=== PATIENT | female | born 1960 | race Caucasian/White ===

== ENCOUNTER 2021-08-16 10:21 | Inpatient (IN) | payer MEDICARE ==
[2021-08-16 11:26] LABS: ALT (SGPT) 17 U/L (8-55); AST (SGOT) 47 U/L (5-34); Albumin 3.4 g/dL (3.5-5.0); Alkaline Phosphatase 106 U/L (40-110); Anion Gap 15 mmol/L (10-20); BUN (Urea Nitrogen) 22 mg/dL (9.8-20.1); Bilirubin, Total 1.4 mg/dL (0.2-1.2); Calc. Creatinine Clearance 0 mL/min (70-130); Calcium 9.7 mg/dL (7.8-10.44); Carbon Dioxide 25 mmol/L (22-29); Chloride 93 mmol/L (98-107); Globulin 5.2 g/dL (2.4-3.5); Glucose 187 mg/dL (70-105); Potassium 4.2 mmol/L (3.5-5.1); Protein, Total 8.6 g/dL (6.0-8.3); Sodium 129 mmol/L (136-145)
[2021-08-16 11:34] LABS: #Eosinphils 0.1 thou/uL (0.0-0.7); #Lymphocytes 1.2 thou/uL (1.20-3.40); #Monocytes 0.6 thou/uL (0.11-0.59); #Neutrophils 2.3 thou/uL (1.40-6.50); %Basophils 0.2 % (0.0-1.0); %Eosinophils 2.1 % (0.0-10.0); %Lymphocytes 29.6 % (21.0-51.0); %Monocytes 13.5 % (0.0-10.0); %Neutrophils 54.5 % (42.0-75.0); Hemoglobin 12.3 g/dL (12.0-16.0); MDiff Complete? YES; Mean Corpuscular HGB CONC 31.1 g/dL (32.0-36.0); Mean Corpuscular Hemoglobin 28.5 pg (27.0-31.0); Mean Corpuscular Volume 91.5 fL (78.0-98.0); Mean Platelet Volume 9.7 fL (7.4-10.4); Platelet Count 86 thou/uL (130-400); Platelet Morphology Comment Appears Decreased; Polychromasia SLIGHT = 2-3 cells (100X) (0-2/hpf); RBC Distribution Width 15.8 % (11.5-14.5); Red Blood Cell (RBC) Count 4.33 mill/uL (4.20-5.40); White Blood Cell (WBC) Count 4.2 thou/uL (4.8-10.8)
[2021-08-16 13:29] LABS: Bacteria/HPF 3+ HPF (None Seen); Bilirubin Negative (Negative); Blood, Urine 2+ (Negative); Clarity Turbid (Clear); Glucose, Urine (Dipstick) Normal (Negative); Ketone, Urine Negative (Negative); Leukocyte Negative Leu/uL (Negative); Nitrite Negative (Negative); Protein, Urine (Dipstick) 200 mg/dL (Neg-Trace); Specific Gravity, Urine 1.018 (1.002-1.036); Squamous Epithelial 0-3 HPF (0-3); WBC/HPF 21-50 HPF (0-3); pH, Urine 6.5 (5.0-9.0)
[2021-08-16] MEDS ORDERED: Ondansetron ODT 4 MG TAB PO PRN (14:05)
[2021-08-16] MEDS ORDERED: HumaLOG 300 UNITS/3 ML VIAL SC PRN (14:05)
[2021-08-16] MEDS ORDERED: Dextrose 50% Abboject 50 ML SYRINGE SLOW IVP PRN (14:05)
[2021-08-16] MEDS ORDERED: hydrALAZINE 20 MG/ML VIAL SLOW IVP PRN (14:05)
[2021-08-16] MEDS ORDERED: Acetaminophen 325 MG TAB PO PRN (14:05)
[2021-08-16] MEDS ORDERED: Dextrose 5% in Water 1,000 ML IV PRN (14:05)
[2021-08-16 15:22] VITALS: BMI 29.1
[2021-08-16] MEDS ORDERED: Carvedilol 25 MG TAB PO SCH (17:00)
[2021-08-16] MEDS: Sodium Chloride 0.9% 1,000 ML IV SCH (17:31)
[2021-08-16] MEDS: Heparin 5,000 UNITS/ML VIAL SC SCH (19:02)
[2021-08-16] MEDS: Carvedilol 25 MG TAB PO SCH (20:46)
[2021-08-16] MEDS: DULoxetine 60 MG CAP PO SCH (20:46)
[2021-08-16] MEDS: Zolpidem Tartrate 5 MG TAB PO PRN (20:53)
[2021-08-16] MEDS ORDERED: Rosuvastatin 20 MG TAB PO SCH (21:00)
[2021-08-17 00:04] LABS: SARS-CoV-2 PCR by NAA Not Detected (NotDetected)
[2021-08-17] MEDS: Sodium Chloride 0.9% 1,000 ML IV SCH ×2 (01:52→11:27)
[2021-08-17 04:47] LABS: #Eosinphils 0.1 thou/uL (0.0-0.7); #Lymphocytes 1.1 thou/uL (1.20-3.40); #Monocytes 0.4 thou/uL (0.11-0.59); #Neutrophils 1.7 thou/uL (1.40-6.50); %Basophils 0.8 % (0.0-1.0); %Eosinophils 2.6 % (0.0-10.0); %Lymphocytes 32.1 % (21.0-51.0); %Monocytes 11.5 % (0.0-10.0); Hemoglobin 10.9 g/dL (12.0-16.0); Mean Corpuscular HGB CONC 32.3 g/dL (32.0-36.0); Mean Corpuscular Hemoglobin 29.5 pg (27.0-31.0); Mean Corpuscular Volume 91.3 fL (78.0-98.0); Mean Platelet Volume 9.4 fL (7.4-10.4); Platelet Count 70 thou/uL (130-400); RBC Distribution Width 15.7 % (11.5-14.5); Red Blood Cell (RBC) Count 3.68 mill/uL (4.20-5.40); White Blood Cell (WBC) Count 3.3 thou/uL (4.8-10.8)
[2021-08-17 05:16] LABS: Anion Gap 10 mmol/L (10-20); BUN (Urea Nitrogen) 18 mg/dL (9.8-20.1); Calc. Creatinine Clearance 32 mL/min (70-130); Calcium 9.1 mg/dL (7.8-10.44); Carbon Dioxide 25 mmol/L (22-29); Chloride 102 mmol/L (98-107); Glucose 119 mg/dL (70-105); Potassium 3.1 mmol/L (3.5-5.1); Sodium 134 mmol/L (136-145)
[2021-08-17] MEDS: Rosuvastatin 10 MG TAB PO SCH (08:33)
[2021-08-17] MEDS: Carvedilol 25 MG TAB PO SCH ×2 (08:33→21:14)
[2021-08-17] MEDS: Aspirin 81 mg Enteric Coated Tablet PO SCH (08:33)
[2021-08-17] MEDS: Empagliflozin 25 MG TAB PO SCH (08:34)
[2021-08-17] MEDS: DULoxetine 60 MG CAP PO SCH ×2 (08:34→21:14)
[2021-08-17] MEDS: Digoxin 0.125 MG TAB PO SCH (08:34)
[2021-08-17] MEDS ORDERED: Rosuvastatin 20 MG TAB PO SCH ×2 (09:00)
[2021-08-17] MEDS ORDERED: Dapagliflozin Propanediol 5 MG TAB PO SCH (09:00)
[2021-08-17] MEDS ORDERED: DULoxetine 60 MG CAP PO SCH (09:00)
[2021-08-17] MEDS: HumaLOG 300 UNITS/3 ML VIAL SC PRN (11:26)
[2021-08-18] MEDS: Sodium Chloride 0.9% 1,000 ML IV SCH (02:38)
[2021-08-18 05:09] LABS: Anion Gap 10 mmol/L (10-20); BUN (Urea Nitrogen) 13 mg/dL (9.8-20.1); Calc. Creatinine Clearance 37 mL/min (70-130); Calcium 9.2 mg/dL (7.8-10.44); Carbon Dioxide 24 mmol/L (22-29); Chloride 105 mmol/L (98-107); Glucose 173 mg/dL (70-105); Sodium 136 mmol/L (136-145)
[2021-08-18 05:12] LABS: #Eosinphils 0.1 thou/uL (0.0-0.7); #Lymphocytes 0.7 thou/uL (1.20-3.40); #Monocytes 0.4 thou/uL (0.11-0.59); #Neutrophils 1.7 thou/uL (1.40-6.50); %Basophils 0.3 % (0.0-1.0); %Lymphocytes 23.9 % (21.0-51.0); %Monocytes 13.6 % (0.0-10.0); %Neutrophils 60.2 % (42.0-75.0); Hemoglobin 10.9 g/dL (12.0-16.0); Mean Corpuscular HGB CONC 31.6 g/dL (32.0-36.0); Mean Corpuscular Volume 91.9 fL (78.0-98.0); Platelet Count 65 thou/uL (130-400); RBC Distribution Width 15.9 % (11.5-14.5); Red Blood Cell (RBC) Count 3.75 mill/uL (4.20-5.40); White Blood Cell (WBC) Count 2.8 thou/uL (4.8-10.8)
[2021-08-18] MEDS: HumaLOG 300 UNITS/3 ML VIAL SC PRN ×3 (06:46→18:13)
[2021-08-18] MEDS: Digoxin 0.125 MG TAB PO SCH (09:33)
[2021-08-18] MEDS: Rosuvastatin 10 MG TAB PO SCH (09:33)
[2021-08-18] MEDS: DULoxetine 60 MG CAP PO SCH ×2 (09:35→21:11)
[2021-08-18] MEDS: Carvedilol 25 MG TAB PO SCH ×2 (09:35→21:13)
[2021-08-18] MEDS: Aspirin 81 mg Enteric Coated Tablet PO SCH (09:35)
[2021-08-18] MEDS: Empagliflozin 25 MG TAB PO SCH (09:56)
[2021-08-18] MEDS ORDERED: Potassium Chloride 20 MEQ TAB PO SCH (11:30)
[2021-08-18] MEDS: Lactated Ringer's 1,000 ML IV SCH (16:15)
[2021-08-18] MEDS: Non-Formulary Item 1 EACH (Spironolactone [Spironolactone] 50 MG Tablet) PO SCH ×2 (17:09→17:10)
[2021-08-18] MEDS ORDERED: Spironolactone 100 MG TAB PO SCH (18:15)
[2021-08-18] MEDS ORDERED: Carvedilol 25 MG TAB PO SCH ×2 (21:00)
[2021-08-18] MEDS: Midodrine HCl 5 MG TAB PO SCH (21:11)
[2021-08-18] MEDS: Zolpidem Tartrate 5 MG TAB PO PRN (21:13)
[2021-08-19] MEDS: Lactated Ringer's 1,000 ML IV SCH (00:34)
[2021-08-19 05:41] LABS: #Eosinphils 0.1 thou/uL (0.0-0.7); #Monocytes 0.3 thou/uL (0.11-0.59); #Neutrophils 1.4 thou/uL (1.40-6.50); %Basophils 0.6 % (0.0-1.0); %Eosinophils 2.5 % (0.0-10.0); %Lymphocytes 35.1 % (21.0-51.0); %Monocytes 11.9 % (0.0-10.0); Hemoglobin 11.4 g/dL (12.0-16.0); Mean Corpuscular HGB CONC 31.4 g/dL (32.0-36.0); Mean Corpuscular Hemoglobin 28.7 pg (27.0-31.0); Mean Corpuscular Volume 91.3 fL (78.0-98.0); Mean Platelet Volume 10.4 fL (7.4-10.4); Platelet Count 64 thou/uL (130-400); RBC Distribution Width 15.7 % (11.5-14.5); Red Blood Cell (RBC) Count 3.99 mill/uL (4.20-5.40); White Blood Cell (WBC) Count 2.7 thou/uL (4.8-10.8)
[2021-08-19 05:50] LABS: Anion Gap 10 mmol/L (10-20); BUN (Urea Nitrogen) 9 mg/dL (9.8-20.1); Calc. Creatinine Clearance 48 mL/min (70-130); Calcium 9.5 mg/dL (7.8-10.44); Carbon Dioxide 23 mmol/L (22-29); Chloride 108 mmol/L (98-107); Glucose 93 mg/dL (70-105); Sodium 138 mmol/L (136-145)
[2021-08-19 06:03] LABS: Potassium 2.9 mmol/L (3.5-5.1)
[2021-08-19] MEDS ORDERED: Potassium Chloride 20 MEQ TAB PO SCH ×2 (06:15→12:00)
[2021-08-19 06:34] LABS: Magnesium 1.7 mg/dL (1.6-2.6)
[2021-08-19] MEDS: Carvedilol 25 MG TAB PO SCH (08:52)
[2021-08-19] MEDS: Digoxin 0.125 MG TAB PO SCH (08:52)
[2021-08-19] MEDS: Aspirin 81 mg Enteric Coated Tablet PO SCH (08:52)
[2021-08-19] MEDS: DULoxetine 60 MG CAP PO SCH (08:53)
[2021-08-19] MEDS: Empagliflozin 25 MG TAB PO SCH (08:53)
[2021-08-19] MEDS: Rosuvastatin 10 MG TAB PO SCH (08:53)
[2021-08-19] MEDS: Midodrine HCl 5 MG TAB PO SCH (08:53)
[2021-08-19] MEDS ORDERED: Spironolactone 100 MG TAB PO SCH (09:00)
[2021-08-19] MEDS: HumaLOG 300 UNITS/3 ML VIAL SC PRN (10:50)
[2021-08-19 12:36] VITALS: TEMP 97.7
[2021-08-19 13:34] VITALS: BP 108/53
== END 2021-08-19 13:53 | disposition home health service (06) | DRG 683 ==
LOC: ERS 10:21 → 2SW 12:31 → OBSVTOIN 08-17 16:27
PROVIDERS: ADMIT Hospitalist; ATTEND Hospitalist
DX: N17.9 Acute kidney failure, unspecified (principal); E87.1 Hypo-osmolality and hyponatremia; I50.32 Chronic diastolic (congestive) heart failure; I13.0 Hypertensive heart and chronic kidney disease with heart failure and stage 1 through stage 4 chronic kidney disease, or unspecified chronic kidney disease; I95.1 Orthostatic hypotension; Z66 Do not resuscitate; I25.10 Atherosclerotic heart disease of native coronary artery without angina pectoris; K21.9 Gastro-esophageal reflux disease without esophagitis; K74.60 Unspecified cirrhosis of liver; E86.0 Dehydration; N18.9 Chronic kidney disease, unspecified; E11.22 Type 2 diabetes mellitus with diabetic chronic kidney disease; Z95.1 Presence of aortocoronary bypass graft; Z90.49 Acquired absence of other specified parts of digestive tract; Z90.710 Acquired absence of both cervix and uterus; Z95.0 Presence of cardiac pacemaker; Z82.49 Family history of ischemic heart disease and other diseases of the circulatory system; Z28.311 Partially vaccinated for COVID-19; Z87.891 Personal history of nicotine dependence
CPT/HCPCS: 36415; 36416; 71045; 80048; 80053; 81003; 81015; 83690; 83735; 83880; 84484; 85025; 93005; 93306; 93880; 96360; 96361; J1815; J7050; J7120; U0003; U0005

== ENCOUNTER 2021-09-06 11:55 | Inpatient (IN) | payer MEDICARE ==
[2021-09-06 13:59] LABS: #Eosinphils 0.1 thou/uL (0.0-0.7); #Lymphocytes 0.7 thou/uL (1.20-3.40); #Monocytes 0.5 thou/uL (0.11-0.59); #Neutrophils 3.4 thou/uL (1.40-6.50); %Basophils 0.2 % (0.0-1.0); %Eosinophils 1.3 % (0.0-10.0); %Lymphocytes 15.5 % (21.0-51.0); %Monocytes 11.4 % (0.0-10.0); %Neutrophils 71.5 % (42.0-75.0); Hemoglobin 12.5 g/dL (12.0-16.0); Mean Corpuscular HGB CONC 32.5 g/dL (32.0-36.0); Mean Corpuscular Hemoglobin 29.6 pg (27.0-31.0); Mean Corpuscular Volume 91.2 fL (78.0-98.0); Mean Platelet Volume 10.6 fL (7.4-10.4); Platelet Count 64 thou/uL (130-400); RBC Distribution Width 16.4 % (11.5-14.5); Red Blood Cell (RBC) Count 4.22 mill/uL (4.20-5.40); White Blood Cell (WBC) Count 4.8 thou/uL (4.8-10.8)
[2021-09-06 14:13] LABS: ALT (SGPT) 26 U/L (8-55); AST (SGOT) 65 U/L (5-34); Albumin 3.4 g/dL (3.5-5.0); Alkaline Phosphatase 102 U/L (40-110); Anion Gap 15 mmol/L (10-20); BUN (Urea Nitrogen) 32 mg/dL (9.8-20.1); Calc. Creatinine Clearance 0 mL/min (70-130); Calcium 9.8 mg/dL (7.8-10.44); Carbon Dioxide 26 mmol/L (22-29); Chloride 93 mmol/L (98-107); Globulin 4.2 g/dL (2.4-3.5); Glucose 186 mg/dL (70-105); Potassium 3.7 mmol/L (3.5-5.1); Protein, Total 7.6 g/dL (6.0-8.3); Sodium 130 mmol/L (136-145)
[2021-09-06] MEDS ORDERED: Cefepime 2 GM VIAL ONE (14:26)
[2021-09-06 14:40] LABS: CKMB 3.3 ng/mL (0-6.6)
[2021-09-06] MEDS ORDERED: HYDROcodone/Acetaminophen 5/325 mg Tablet ONE (15:13)
[2021-09-06 15:18] LABS: Bilirubin Negative (Negative); Blood, Urine Large (Negative); Glucose, Urine (Dipstick) >=1000 mg/dL (Negative); Ketone, Urine Negative (Negative); Leukocyte Negative (Negative); Nitrite Negative (Negative); Protein, Urine (Dipstick) 100 mg/dL (Neg-Trace); Specific Gravity, Urine 1.025 (1.005-1.030); pH, Urine 5.5 (5.0-9.0)
[2021-09-06 15:19] LABS: Clarity Hazy (Clear)
[2021-09-06 15:24] LABS: Bacteria/HPF 2+ HPF (None Seen); RBC/HPF 0-3 HPF (0-3); WBC/HPF 0-3 HPF (0-3)
[2021-09-06] MEDS ORDERED: Carvedilol 6.25 MG TAB PO SCH ×2 (17:08→18:30)
[2021-09-06] MEDS ORDERED: Bisacodyl 5 MG TAB PO PRN (17:08)
[2021-09-06] MEDS ORDERED: Ondansetron PF 4 MG/2 ML Vial IVP PRN (17:08)
[2021-09-06 17:34] LABS: Digoxin 0.73 ng/mL (0.8-2.0)
[2021-09-06 19:35] VITALS: BMI 27.6
[2021-09-06] MEDS: DULoxetine 60 MG CAP PO SCH (21:43)
[2021-09-06] MEDS: Heparin 5,000 UNITS/ML VIAL SC SCH (21:44)
[2021-09-07] MEDS: Acetaminophen 325 MG TAB PO PRN (01:00)
[2021-09-07 05:39] LABS: Hemoglobin 10.9 g/dL (12.0-16.0); Mean Corpuscular HGB CONC 31.9 g/dL (32.0-36.0); Mean Corpuscular Hemoglobin 29.3 pg (27.0-31.0); Mean Platelet Volume 10.7 fL (7.4-10.4); Platelet Count 61 thou/uL (130-400); RBC Distribution Width 16.2 % (11.5-14.5); Red Blood Cell (RBC) Count 3.73 mill/uL (4.20-5.40); White Blood Cell (WBC) Count 3.7 thou/uL (4.8-10.8)
[2021-09-07 05:40] LABS: Band 2 % (5-11); Hypochromia SLIGHT = 6-15 cells (100X) (0-5/hpf); Lymphocytes 18 % (21-51); MDiff Complete? YES; Monocytes 17 % (0-10); Neutrophil 62 % (42-75); Platelet Morphology Comment Appears Decreased; Reactive Lymphocytes 1 % (0-10)
[2021-09-07 05:44] LABS: ALT (SGPT) 23 U/L (8-55); AST (SGOT) 55 U/L (5-34); Alkaline Phosphatase 117 U/L (40-110); Protein, Total 6.8 g/dL (6.0-8.3)
[2021-09-07 05:48] LABS: Anion Gap 12 mmol/L (10-20); BUN (Urea Nitrogen) 30 mg/dL (9.8-20.1); Calc. Creatinine Clearance 37 mL/min (70-130); Calcium 9.7 mg/dL (7.8-10.44); Carbon Dioxide 26 mmol/L (22-29); Chloride 97 mmol/L (98-107); Glucose 214 mg/dL (70-105); Potassium 3.3 mmol/L (3.5-5.1); Sodium 132 mmol/L (136-145)
[2021-09-07] MEDS ORDERED: Furosemide 40 MG TAB PO SCH (07:30)
[2021-09-07] MEDS ORDERED: Glimepiride 4 MG TAB PO SCH (08:00)
[2021-09-07] MEDS ORDERED: Carvedilol 6.25 MG TAB PO SCH (08:00)
[2021-09-07] MEDS: Digoxin 0.125 MG TAB PO SCH (08:52)
[2021-09-07] MEDS: DULoxetine 60 MG CAP PO SCH ×2 (08:56→21:29)
[2021-09-07] MEDS: Aspirin 81 mg Enteric Coated Tablet PO SCH (08:56)
[2021-09-07] MEDS: Empagliflozin 10 MG TAB PO SCH (08:57)
[2021-09-07] MEDS: Heparin 5,000 UNITS/ML VIAL SC SCH (08:59)
[2021-09-07] MEDS ORDERED: Dextrose 50% Abboject 50 ML SYRINGE SLOW IVP PRN (09:11)
[2021-09-07] MEDS ORDERED: Dextrose 5% in Water 1,000 ML IV PRN (09:11)
[2021-09-07] MEDS: Insulin Regular 300 UNITS/3 ML VIAL SC PRN ×3 (12:47→21:29)
[2021-09-07] MEDS ORDERED: Carvedilol 3.125 MG TAB PO SCH (17:00)
[2021-09-07] MEDS ORDERED: Glimepiride 2 MG TAB PO SCH (17:30)
[2021-09-08 04:57] LABS: #Eosinphils 0.1 thou/uL (0.0-0.7); #Lymphocytes 1.1 thou/uL (1.20-3.40); #Monocytes 0.5 thou/uL (0.11-0.59); #Neutrophils 2.1 thou/uL (1.40-6.50); %Basophils 0.3 % (0.0-1.0); %Eosinophils 2.1 % (0.0-10.0); %Lymphocytes 28.9 % (21.0-51.0); %Monocytes 13.3 % (0.0-10.0); %Neutrophils 55.4 % (42.0-75.0); Hemoglobin 12.2 g/dL (12.0-16.0); Mean Corpuscular HGB CONC 31.9 g/dL (32.0-36.0); Mean Corpuscular Hemoglobin 29.6 pg (27.0-31.0); Mean Corpuscular Volume 92.8 fL (78.0-98.0); Mean Platelet Volume 10.3 fL (7.4-10.4); Platelet Count 67 thou/uL (130-400); RBC Distribution Width 16.3 % (11.5-14.5); White Blood Cell (WBC) Count 3.9 thou/uL (4.8-10.8)
[2021-09-08 05:02] LABS: INR-International Normal Ratio 1.4; PTT 37.1 sec (22.9-36.1); Prothrombin Time 17.2 sec (12.0-14.7)
[2021-09-08 05:16] LABS: ALT (SGPT) 28 U/L (8-55); AST (SGOT) 63 U/L (5-34); Albumin 3.1 g/dL (3.5-5.0); Alkaline Phosphatase 119 U/L (40-110); Anion Gap 13 mmol/L (10-20); BUN (Urea Nitrogen) 20 mg/dL (9.8-20.1); Calc. Creatinine Clearance 45 mL/min (70-130); Calcium 9.4 mg/dL (7.8-10.44); Carbon Dioxide 28 mmol/L (22-29); Chloride 97 mmol/L (98-107); Glucose 114 mg/dL (70-105); Magnesium 1.8 mg/dL (1.6-2.6); Phosphorus 2.5 mg/dL (2.3-4.7); Protein, Total 7.1 g/dL (6.0-8.3); Sodium 135 mmol/L (136-145)
[2021-09-08 05:22] LABS: Potassium 2.9 mmol/L (3.5-5.1)
[2021-09-08] MEDS ORDERED: Potassium Chloride 20 MEQ TAB PO SCH (05:45)
[2021-09-08] MEDS: Digoxin 0.125 MG TAB PO SCH (09:53)
[2021-09-08] MEDS: Senokot S 8.6-50 MG TAB PO SCH ×2 (09:53→22:30)
[2021-09-08] MEDS: Aspirin 81 mg Enteric Coated Tablet PO SCH (09:53)
[2021-09-08] MEDS: Multivit, Therapeutic 1 TAB PO SCH (09:54)
[2021-09-08] MEDS: Empagliflozin 10 MG TAB PO SCH (09:54)
[2021-09-08] MEDS: Potassium Chloride 20 MEQ TAB PO SCH ×2 (09:54→22:29)
[2021-09-08] MEDS: Glimepiride 4 MG TAB PO SCH ×2 (09:54→17:33)
[2021-09-08] MEDS: Acetaminophen 325 MG TAB PO PRN (09:54)
[2021-09-08] MEDS: DULoxetine 60 MG CAP PO SCH ×2 (09:54→22:29)
[2021-09-08] MEDS: Insulin Regular 300 UNITS/3 ML VIAL SC PRN ×3 (11:55→22:30)
[2021-09-08 14:12] LABS: Potassium 3.7 mmol/L (3.5-5.1)
[2021-09-08 17:34] LABS: HBSAB Concentration Less than 8.00 mIU/mL; HBSAg Index 0.26 S/CO (0-0.99); HIV (1/2) Antibody/Antigen Non-Reactive (NonReactive); HIV 1/2 INDEX 0.15 S/CO (<1.00); Hep A IgM AB Non-Reactive (NonReactive); Hep A IgM S/CO 0.23 S/CO (0-0.79); Hep B Core Total Ab Non-Reactive (NonReactive); Hep B Core Total Index 0.13 S/CO (0-0.79); Hep B Surf AB Non-Reactive (NonReactive); Hep B Surf Ag Non-Reactive S/CO (NonReactive); Hep C IgG Ab Non-Reactive (NonReactive); Hep C Index 0.13 S/CO (0-0.79)
[2021-09-08] MEDS: Rosuvastatin 20 MG TAB PO SCH (22:29)
[2021-09-08] MEDS ORDERED: Zolpidem Tartrate 5 MG TAB PO SCH (23:59)
[2021-09-09 04:47] LABS: Phosphorus 2.3 mg/dL (2.3-4.7)
[2021-09-09 04:53] LABS: ALT (SGPT) 29 U/L (8-55); AST (SGOT) 71 U/L (5-34); Albumin 3.1 g/dL (3.5-5.0); Alkaline Phosphatase 121 U/L (40-110); Anion Gap 12 mmol/L (10-20); BUN (Urea Nitrogen) 19 mg/dL (9.8-20.1); Bilirubin, Total 1.5 mg/dL (0.2-1.2); Calc. Creatinine Clearance 45 mL/min (70-130); Calcium 9.9 mg/dL (7.8-10.44); Carbon Dioxide 28 mmol/L (22-29); Chloride 101 mmol/L (98-107); Globulin 4.4 g/dL (2.4-3.5); Glucose 146 mg/dL (70-105); Potassium 4.4 mmol/L (3.5-5.1); Protein, Total 7.5 g/dL (6.0-8.3); Sodium 137 mmol/L (136-145)
[2021-09-09 05:02] LABS: Band 2 % (5-11); Lymphocytes 24 % (21-51); MDiff Complete? YES; Mean Corpuscular HGB CONC 31.8 g/dL (32.0-36.0); Mean Corpuscular Hemoglobin 29.7 pg (27.0-31.0); Mean Corpuscular Volume 93.5 fL (78.0-98.0); Mean Platelet Volume 9.7 fL (7.4-10.4); Monocytes 12 % (0-10); Neutrophil 62 % (42-75); Platelet Count 74 thou/uL (130-400); Platelet Morphology Comment Appears Adequate; RBC Distribution Width 16.3 % (11.5-14.5); RBC Morphology Normal; Red Blood Cell (RBC) Count 4.03 mill/uL (4.20-5.40); White Blood Cell (WBC) Count 4.1 thou/uL (4.8-10.8)
[2021-09-09] MEDS: Insulin Regular 300 UNITS/3 ML VIAL SC PRN ×4 (06:13→22:48)
[2021-09-09] MEDS: Glimepiride 4 MG TAB PO SCH ×2 (09:51→17:18)
[2021-09-09] MEDS: Aspirin 81 mg Enteric Coated Tablet PO SCH (09:51)
[2021-09-09] MEDS: Carvedilol 6.25 MG TAB PO SCH ×2 (09:51→17:19)
[2021-09-09] MEDS: Digoxin 0.125 MG TAB PO SCH (09:51)
[2021-09-09] MEDS: Senokot S 8.6-50 MG TAB PO SCH ×2 (09:51→22:48)
[2021-09-09] MEDS: Acetaminophen 325 MG TAB PO PRN ×2 (09:51→17:19)
[2021-09-09] MEDS: Empagliflozin 10 MG TAB PO SCH (09:52)
[2021-09-09] MEDS: DULoxetine 60 MG CAP PO SCH ×2 (09:52→22:46)
[2021-09-09] MEDS: Multivit, Therapeutic 1 TAB PO SCH (09:52)
[2021-09-09] MEDS: Potassium Chloride 20 MEQ TAB PO SCH ×2 (09:52→22:47)
[2021-09-09] MEDS: Rosuvastatin 20 MG TAB PO SCH (22:47)
[2021-09-09] MEDS: Zolpidem Tartrate 5 MG TAB PO PRN (22:47)
[2021-09-10 04:45] LABS: #Eosinphils 0.1 thou/uL (0.0-0.7); #Monocytes 0.5 thou/uL (0.11-0.59); #Neutrophils 1.9 thou/uL (1.40-6.50); %Basophils 0.7 % (0.0-1.0); %Eosinophils 2.1 % (0.0-10.0); %Lymphocytes 28.5 % (21.0-51.0); %Monocytes 14.5 % (0.0-10.0); %Neutrophils 54.3 % (42.0-75.0); Hemoglobin 11.7 g/dL (12.0-16.0); Mean Corpuscular HGB CONC 31.9 g/dL (32.0-36.0); Mean Corpuscular Hemoglobin 29.8 pg (27.0-31.0); Mean Corpuscular Volume 93.4 fL (78.0-98.0); Mean Platelet Volume 10.1 fL (7.4-10.4); Platelet Count 69 thou/uL (130-400); RBC Distribution Width 16.1 % (11.5-14.5); Red Blood Cell (RBC) Count 3.93 mill/uL (4.20-5.40); White Blood Cell (WBC) Count 3.5 thou/uL (4.8-10.8)
[2021-09-10 05:00] LABS: ALT (SGPT) 29 U/L (8-55); AST (SGOT) 57 U/L (5-34); Albumin 2.9 g/dL (3.5-5.0); Alkaline Phosphatase 131 U/L (40-110); Anion Gap 11 mmol/L (10-20); BUN (Urea Nitrogen) 17 mg/dL (9.8-20.1); Bilirubin, Total 1.4 mg/dL (0.2-1.2); Calc. Creatinine Clearance 60 mL/min (70-130); Calcium 9.5 mg/dL (7.8-10.44); Carbon Dioxide 24 mmol/L (22-29); Chloride 103 mmol/L (98-107); Globulin 3.9 g/dL (2.4-3.5); Glucose 147 mg/dL (70-105); Protein, Total 6.8 g/dL (6.0-8.3); Sodium 134 mmol/L (136-145)
[2021-09-10] MEDS: Insulin Regular 300 UNITS/3 ML VIAL SC PRN ×2 (05:48→11:39)
[2021-09-10] MEDS: DULoxetine 60 MG CAP PO SCH ×2 (08:21→21:26)
[2021-09-10] MEDS: Digoxin 0.125 MG TAB PO SCH (08:21)
[2021-09-10] MEDS: Carvedilol 6.25 MG TAB PO SCH (08:21)
[2021-09-10] MEDS: Folic Acid 1 MG TAB PO SCH (08:22)
[2021-09-10] MEDS: Aspirin 81 mg Enteric Coated Tablet PO SCH (08:22)
[2021-09-10] MEDS: Cyanocobalamin (Vitamin B-12) 1,000 MCG TAB PO SCH (08:22)
[2021-09-10] MEDS: Glimepiride 4 MG TAB PO SCH (08:23)
[2021-09-10] MEDS: Potassium Chloride 20 MEQ TAB PO SCH (08:23)
[2021-09-10] MEDS: Multivit, Therapeutic 1 TAB PO SCH (08:24)
[2021-09-10] MEDS: Senokot S 8.6-50 MG TAB PO SCH ×2 (08:24→21:26)
[2021-09-10] MEDS: Empagliflozin 10 MG TAB PO SCH (08:25)
[2021-09-10] MEDS: Carvedilol 3.125 MG TAB PO SCH (17:12)
[2021-09-10] MEDS: Rosuvastatin 20 MG TAB PO SCH (21:26)
[2021-09-10] MEDS: Zolpidem Tartrate 5 MG TAB PO PRN (21:27)
[2021-09-10 22:23] LABS: Amphetamine Not Detected (NotDetected); Barbiturates Screen Not Detected (NotDetected); Benzodiazepine Screen Not Detected (NotDetected); Cocaine Metabolite Screen Not Detected (NotDetected); Methadone Not Detected (NotDetected); Methamphetamine Not Detected (NotDetected); Opiate Screen Not Detected (NotDetected); Oxycodone Screen Not Detected (NotDetected); Phencyclidine (PCP) Not Detected (NotDetected); THC/Cannabinoid Screen Not Detected (NotDetected); Tricyclic Screen Not Detected (NotDetected)
[2021-09-11] MEDS: Multivit, Therapeutic 1 TAB PO SCH (09:57)
[2021-09-11] MEDS: Aspirin 81 mg Enteric Coated Tablet PO SCH (09:57)
[2021-09-11] MEDS: Cyanocobalamin (Vitamin B-12) 1,000 MCG TAB PO SCH (09:58)
[2021-09-11] MEDS: Digoxin 0.125 MG TAB PO SCH (09:58)
[2021-09-11] MEDS: Carvedilol 3.125 MG TAB PO SCH ×2 (09:58→16:16)
[2021-09-11] MEDS: Potassium Chloride 20 MEQ TAB PO SCH (09:58)
[2021-09-11] MEDS: Glimepiride 4 MG TAB PO SCH (09:58)
[2021-09-11] MEDS: Folic Acid 1 MG TAB PO SCH (09:58)
[2021-09-11] MEDS: DULoxetine 60 MG CAP PO SCH ×2 (09:58→22:29)
[2021-09-11] MEDS: Empagliflozin 10 MG TAB PO SCH (09:58)
[2021-09-11] MEDS: Senokot S 8.6-50 MG TAB PO SCH ×2 (09:59→22:30)
[2021-09-11] MEDS: Insulin Regular 300 UNITS/3 ML VIAL SC PRN (22:28)
[2021-09-11] MEDS: Rosuvastatin 20 MG TAB PO SCH (22:29)
[2021-09-11] MEDS: Zolpidem Tartrate 5 MG TAB PO PRN (22:30)
[2021-09-12] MEDS: Digoxin 0.125 MG TAB PO SCH (09:08)
[2021-09-12] MEDS: Glimepiride 4 MG TAB PO SCH (09:08)
[2021-09-12] MEDS: Potassium Chloride 20 MEQ TAB PO SCH (09:09)
[2021-09-12] MEDS: Aspirin 81 mg Enteric Coated Tablet PO SCH (09:09)
[2021-09-12] MEDS: Multivit, Therapeutic 1 TAB PO SCH (09:09)
[2021-09-12] MEDS: Folic Acid 1 MG TAB PO SCH (09:09)
[2021-09-12] MEDS: Senokot S 8.6-50 MG TAB PO SCH (09:09)
[2021-09-12] MEDS: DULoxetine 60 MG CAP PO SCH (09:09)
[2021-09-12] MEDS: Empagliflozin 10 MG TAB PO SCH (09:10)
[2021-09-12] MEDS: Carvedilol 3.125 MG TAB PO SCH ×2 (09:10→17:19)
[2021-09-12] MEDS: Cyanocobalamin (Vitamin B-12) 1,000 MCG TAB PO SCH (09:11)
[2021-09-12] MEDS ORDERED: Midodrine HCl 5 MG TAB PO SCH ×2 (15:00)
[2021-09-12 15:59] VITALS: BP 136/62; TEMP 97.4
== END 2021-09-12 19:15 | DRG 312 ==
LOC: ERS 11:55 → ERHOLD 15:37 → 2NO 18:39 → OBSVTOIN 09-07 19:45
PROVIDERS: ADMIT Internal Medicine; ATTEND Internal Medicine
DX: I95.1 Orthostatic hypotension (principal); Z66 Do not resuscitate; Z20.822 Contact with and (suspected) exposure to COVID-19; N17.9 Acute kidney failure, unspecified; I13.0 Hypertensive heart and chronic kidney disease with heart failure and stage 1 through stage 4 chronic kidney disease, or unspecified chronic kidney disease; E87.1 Hypo-osmolality and hyponatremia; I50.22 Chronic systolic (congestive) heart failure; D61.818 Other pancytopenia; I25.10 Atherosclerotic heart disease of native coronary artery without angina pectoris; E11.22 Type 2 diabetes mellitus with diabetic chronic kidney disease; K21.9 Gastro-esophageal reflux disease without esophagitis; E87.6 Hypokalemia; I08.3 Combined rheumatic disorders of mitral, aortic and tricuspid valves; D69.6 Thrombocytopenia, unspecified; F41.9 Anxiety disorder, unspecified; N18.30 Chronic kidney disease, stage 3 unspecified; K74.60 Unspecified cirrhosis of liver; E78.5 Hyperlipidemia, unspecified; I25.5 Ischemic cardiomyopathy; E83.42 Hypomagnesemia; R29.6 Repeated falls; R74.8 Abnormal levels of other serum enzymes; Z88.8 Allergy status to other drugs, medicaments and biological substances; Z79.899 Other long term (current) drug therapy; Z79.84 Long term (current) use of oral hypoglycemic drugs; Z79.82 Long term (current) use of aspirin; Z90.89 Acquired absence of other organs; Z90.49 Acquired absence of other specified parts of digestive tract; Z95.1 Presence of aortocoronary bypass graft; Z90.710 Acquired absence of both cervix and uterus; Z82.49 Family history of ischemic heart disease and other diseases of the circulatory system; Z91.81 History of falling; Z95.810 Presence of automatic (implantable) cardiac defibrillator
CPT/HCPCS: 36415; 36416; 70450; 76705; 80048; 80053; 80076; 80162; 80306; 80307; 81003; 81015; 82533; 82553; 82607; 82746; 83735; 84100; 84484; 85025; 85610; 85730; 86704; 86706; 86709; 86803; 87340; 93005; 96361; 96374; G0378; J0692; J1815; J2405; U0003; U0005

== ENCOUNTER 2021-10-14 12:03 | Inpatient (IN) | payer MEDICARE ==
[2021-10-14 12:41] LABS: #Eosinphils 0.1 thou/uL (0.0-0.7); #Monocytes 0.4 thou/uL (0.11-0.59); #Neutrophils 2.6 thou/uL (1.40-6.50); %Basophils 0.4 % (0.0-1.0); %Eosinophils 3.3 % (0.0-10.0); %Lymphocytes 24.5 % (21.0-51.0); %Monocytes 9.9 % (0.0-10.0); %Neutrophils 61.9 % (42.0-75.0); Mean Corpuscular HGB CONC 31.5 g/dL (32.0-36.0); Mean Corpuscular Hemoglobin 29.3 pg (27.0-31.0); Mean Corpuscular Volume 93.2 fL (78.0-98.0); Mean Platelet Volume 9.6 fL (7.4-10.4); Platelet Count 111 thou/uL (130-400); RBC Distribution Width 15.6 % (11.5-14.5); Red Blood Cell (RBC) Count 3.74 mill/uL (4.20-5.40); White Blood Cell (WBC) Count 4.2 thou/uL (4.8-10.8)
[2021-10-14 13:03] LABS: ALT (SGPT) 21 U/L (8-55); AST (SGOT) 41 U/L (5-34); Albumin 2.9 g/dL (3.5-5.0); Alkaline Phosphatase 160 U/L (40-110); Anion Gap 13 mmol/L (10-20); BUN (Urea Nitrogen) 11 mg/dL (9.8-20.1); Bilirubin, Total 1.4 mg/dL (0.2-1.2); Calc. Creatinine Clearance 0 mL/min (70-130); Calcium 8.5 mg/dL (7.8-10.44); Carbon Dioxide 22 mmol/L (22-29); Chloride 105 mmol/L (98-107); Estimated GFR 76; Globulin 3.8 g/dL (2.4-3.5); Glucose 121 mg/dL (70-105); Protein, Total 6.7 g/dL (6.0-8.3); Sodium 136 mmol/L (136-145)
[2021-10-14] MEDS ORDERED: Furosemide 40 MG/4 ML VIAL ONE (15:33)
[2021-10-14 15:56] LABS: Troponin I 0.015 ng/mL (< 0.028)
[2021-10-14] MEDS ORDERED: Heparin 1,000 UNITS/ML VIAL ONE (16:23)
[2021-10-14] MEDS ORDERED: Ondansetron PF 4 MG/2 ML Vial IVP PRN (16:38)
[2021-10-14] MEDS ORDERED: Acetaminophen 650 MG Suppository PR PRN (16:38)
[2021-10-14] MEDS ORDERED: Acetaminophen 325 MG TAB PO PRN (16:38)
[2021-10-14] MEDS ORDERED: Ondansetron ODT 4 MG TAB PO PRN (16:38)
[2021-10-14] MEDS ORDERED: Furosemide 40 MG/4 ML VIAL SLOW IVP SCH (16:45)
[2021-10-14 18:46] LABS: INR-International Normal Ratio 1.3; Prothrombin Time 16.1 sec (12.0-14.7)
[2021-10-14 18:59] LABS: Troponin I 0.012 ng/mL (< 0.028)
[2021-10-14 19:17] LABS: HBSAg Index 0.27 S/CO (0-0.99); Hep A IgM AB Non-Reactive (NonReactive); Hep A IgM S/CO 0.14 S/CO (0-0.79); Hep B Surf Ag Non-Reactive S/CO (NonReactive); Hep C IgG Ab Non-Reactive (NonReactive); Hep C Index 0.13 S/CO (0-0.79); Hepatitis B Core IgM Abs Non-Reactive (NonReactive)
[2021-10-14 19:18] LABS: HBSAB Concentration Less than 8.00 mIU/mL; Hep B Surf AB Non-Reactive (NonReactive); Hepatitis B Core IgM Abs Non-Reactive (NonReactive)
[2021-10-14] MEDS ORDERED: Dextrose 50% Abboject 50 ML SYRINGE SLOW IVP PRN (19:43)
[2021-10-14] MEDS ORDERED: Dextrose 5% in Water 1,000 ML IV PRN (19:43)
[2021-10-14] MEDS ORDERED: Zolpidem Tartrate 5 MG TAB PO SCH (22:15)
[2021-10-14] MEDS: Midodrine HCl 5 MG TAB PO SCH (22:15)
[2021-10-15 04:48] LABS: #Eosinphils 0.1 thou/uL (0.0-0.7); #Monocytes 0.5 thou/uL (0.11-0.59); #Neutrophils 2.5 thou/uL (1.40-6.50); %Basophils 0.5 % (0.0-1.0); %Eosinophils 2.6 % (0.0-10.0); %Monocytes 11.2 % (0.0-10.0); %Neutrophils 60.7 % (42.0-75.0); Hemoglobin 10.2 g/dL (12.0-16.0); Mean Corpuscular HGB CONC 31.1 g/dL (32.0-36.0); Mean Corpuscular Hemoglobin 29.1 pg (27.0-31.0); Mean Corpuscular Volume 93.7 fL (78.0-98.0); Mean Platelet Volume 9.2 fL (7.4-10.4); Platelet Count 122 thou/uL (130-400); RBC Distribution Width 15.4 % (11.5-14.5); Red Blood Cell (RBC) Count 3.51 mill/uL (4.20-5.40); White Blood Cell (WBC) Count 4.1 thou/uL (4.8-10.8)
[2021-10-15 05:08] LABS: ALT (SGPT) 19 U/L (8-55); AST (SGOT) 32 U/L (5-34); Albumin 2.7 g/dL (3.5-5.0); Alkaline Phosphatase 134 U/L (40-110); Anion Gap 13 mmol/L (10-20); BUN (Urea Nitrogen) 10 mg/dL (9.8-20.1); Bilirubin, Total 1.2 mg/dL (0.2-1.2); Calc. Creatinine Clearance 103 mL/min (70-130); Calcium 8.3 mg/dL (7.8-10.44); Carbon Dioxide 23 mmol/L (22-29); Chloride 103 mmol/L (98-107); Estimated GFR 85; Globulin 3.6 g/dL (2.4-3.5); Glucose 92 mg/dL (70-105); Iron 20 ug/dL (50-170); Iron Binding Capacity, Total 238 mcg/dL (265-497); Potassium 3.3 mmol/L (3.5-5.1); Protein, Total 6.3 g/dL (6.0-8.3); Sodium 136 mmol/L (136-145)
[2021-10-15 05:31] LABS: Iron 19 ug/dL (50-170); Iron Binding Capacity, Total 236 mcg/dL (265-497)
[2021-10-15] MEDS ORDERED: Furosemide 40 MG/4 ML VIAL SLOW IVP SCH ×2 (06:00)
[2021-10-15] MEDS: Digoxin 0.125 MG TAB PO SCH (09:43)
[2021-10-15] MEDS: Carvedilol 3.125 MG TAB PO SCH ×2 (09:43→15:20)
[2021-10-15] MEDS: Folic Acid 1 MG TAB PO SCH (09:44)
[2021-10-15] MEDS: DULoxetine 60 MG CAP PO SCH (09:44)
[2021-10-15] MEDS: Midodrine HCl 5 MG TAB PO SCH ×3 (09:44→21:13)
[2021-10-15] MEDS: Rosuvastatin 20 MG TAB PO SCH (09:46)
[2021-10-15 10:17] LABS: Fluid, Amylase 14 U/L (Not Available); Fluid, LDH 32 U/L (Not Available); Fluid, Protein Less than 1.0 g/dL (Not Available)
[2021-10-15 10:37] LABS: RBC Count-Automated (BF) 32 /cu.mm; WBC/Nucleated-Auto (BF) 86 /cu.mm
[2021-10-15 10:58] LABS: BF Color Colorless; Body Fluid Source Ascites Body Fluid; Clarity Hazy (Clear); Tube # EDTA
[2021-10-15 11:14] LABS: BF Segmented Neutrophils 24 %; Cell Count Non Hematic 61 %; Lymphocytes 15 %
[2021-10-15] MEDS ORDERED: Spironolactone 25 MG TAB PO SCH ×2 (11:51→12:15)
[2021-10-15] MEDS ORDERED: Potassium Chloride 20 MEQ TAB PO SCH (12:00)
[2021-10-15] MEDS ORDERED: Electrolyte Replacement Protocol 1 EACH FS SCH (12:00)
[2021-10-15] MEDS: Furosemide 40 MG/4 ML VIAL SLOW IVP SCH (12:51)
[2021-10-15] MEDS ORDERED: Magnesium 2 GM/50 ML(in water) 2 GM in Premix Bag 1 BAG IVPB SCH (14:00)
[2021-10-15] MEDS: Zolpidem Tartrate 5 MG TAB PO SCH (21:13)
[2021-10-16 04:47] LABS: #Eosinphils 0.1 thou/uL (0.0-0.7); #Lymphocytes 0.9 thou/uL (1.20-3.40); #Monocytes 0.4 thou/uL (0.11-0.59); #Neutrophils 2.1 thou/uL (1.40-6.50); %Basophils 0.3 % (0.0-1.0); %Eosinophils 2.8 % (0.0-10.0); %Lymphocytes 25.2 % (21.0-51.0); %Monocytes 11.9 % (0.0-10.0); %Neutrophils 59.8 % (42.0-75.0); Hemoglobin 10.5 g/dL (12.0-16.0); Mean Corpuscular HGB CONC 31.2 g/dL (32.0-36.0); Mean Corpuscular Hemoglobin 28.8 pg (27.0-31.0); Mean Corpuscular Volume 92.3 fL (78.0-98.0); Mean Platelet Volume 9.1 fL (7.4-10.4); Platelet Count 119 thou/uL (130-400); RBC Distribution Width 15.2 % (11.5-14.5); Red Blood Cell (RBC) Count 3.65 mill/uL (4.20-5.40); White Blood Cell (WBC) Count 3.6 thou/uL (4.8-10.8)
[2021-10-16 05:04] LABS: ALT (SGPT) 15 U/L (8-55); AST (SGOT) 27 U/L (5-34); Albumin 2.5 g/dL (3.5-5.0); Alkaline Phosphatase 150 U/L (40-110); Anion Gap 15 mmol/L (10-20); BUN (Urea Nitrogen) 12 mg/dL (9.8-20.1); Bilirubin, Total 1.1 mg/dL (0.2-1.2); Calc. Creatinine Clearance 92 mL/min (70-130); Calcium 8.3 mg/dL (7.8-10.44); Carbon Dioxide 24 mmol/L (22-29); Chloride 100 mmol/L (98-107); Estimated GFR 81; Globulin 3.8 g/dL (2.4-3.5); Glucose 166 mg/dL (70-105); Protein, Total 6.3 g/dL (6.0-8.3); Sodium 136 mmol/L (136-145)
[2021-10-16] MEDS ORDERED: Potassium Chloride 20 MEQ TAB PO SCH ×2 (06:00→21:00)
[2021-10-16] MEDS: Furosemide 40 MG/4 ML VIAL SLOW IVP SCH (06:02)
[2021-10-16] MEDS ORDERED: Aspirin 81 mg Enteric Coated Tablet PO SCH (09:00)
[2021-10-16] MEDS ORDERED: Spironolactone 25 MG TAB PO SCH (09:00)
[2021-10-16] MEDS: Carvedilol 3.125 MG TAB PO SCH ×2 (10:13→16:15)
[2021-10-16] MEDS: DULoxetine 60 MG CAP PO SCH (10:14)
[2021-10-16] MEDS: Midodrine HCl 5 MG TAB PO SCH ×3 (10:14→21:58)
[2021-10-16] MEDS: Aspirin 81 mg Enteric Coated Tablet PO SCH (10:14)
[2021-10-16] MEDS: Rosuvastatin 20 MG TAB PO SCH (10:14)
[2021-10-16] MEDS: Folic Acid 1 MG TAB PO SCH (10:14)
[2021-10-16] MEDS: Digoxin 0.125 MG TAB PO SCH (10:15)
[2021-10-16 10:58] LABS: Potassium 3.3 mmol/L (3.5-5.1)
[2021-10-16 12:41] LABS: Magnesium 2.1 mg/dL (1.6-2.6)
[2021-10-16 16:09] LABS: Alpha-1-Antitrypsin 239 mg/dL (101-187)
[2021-10-16] MEDS: Zolpidem Tartrate 5 MG TAB PO SCH (21:59)
[2021-10-17 02:14] LABS: #Eosinphils 0.1 thou/uL (0.0-0.7); #Lymphocytes 0.9 thou/uL (1.20-3.40); #Monocytes 0.4 thou/uL (0.11-0.59); #Neutrophils 2.3 thou/uL (1.40-6.50); %Basophils 0.5 % (0.0-1.0); %Eosinophils 2.6 % (0.0-10.0); %Monocytes 11.7 % (0.0-10.0); %Neutrophils 61.2 % (42.0-75.0); Hemoglobin 10.4 g/dL (12.0-16.0); Mean Corpuscular HGB CONC 31.5 g/dL (32.0-36.0); Mean Corpuscular Hemoglobin 29.3 pg (27.0-31.0); Platelet Count 128 thou/uL (130-400); RBC Distribution Width 15.2 % (11.5-14.5); Red Blood Cell (RBC) Count 3.55 mill/uL (4.20-5.40); White Blood Cell (WBC) Count 3.7 thou/uL (4.8-10.8)
[2021-10-17 03:48] LABS: ALT (SGPT) 16 U/L (8-55); AST (SGOT) 29 U/L (5-34); Albumin 2.6 g/dL (3.5-5.0); Alkaline Phosphatase 142 U/L (40-110); Anion Gap 12 mmol/L (10-20); BUN (Urea Nitrogen) 13 mg/dL (9.8-20.1); Bilirubin, Total 0.8 mg/dL (0.2-1.2); Calc. Creatinine Clearance 93 mL/min (70-130); Calcium 8.4 mg/dL (7.8-10.44); Carbon Dioxide 25 mmol/L (22-29); Chloride 102 mmol/L (98-107); Estimated GFR 82; Globulin 3.7 g/dL (2.4-3.5); Glucose 178 mg/dL (70-105); Potassium 3.4 mmol/L (3.5-5.1); Protein, Total 6.3 g/dL (6.0-8.3); Sodium 136 mmol/L (136-145)
[2021-10-17] MEDS ORDERED: Spironolactone 25 MG TAB PO SCH ×2 (08:00→14:45)
[2021-10-17] MEDS ORDERED: Potassium Chloride 20 MEQ TAB PO SCH (08:00)
[2021-10-17] MEDS ORDERED: Furosemide 20 MG TAB PO SCH ×2 (09:00→14:45)
[2021-10-17] MEDS: Digoxin 0.125 MG TAB PO SCH (10:52)
[2021-10-17] MEDS: Folic Acid 1 MG TAB PO SCH (10:53)
[2021-10-17] MEDS: Carvedilol 3.125 MG TAB PO SCH ×2 (10:53→18:01)
[2021-10-17] MEDS: DULoxetine 60 MG CAP PO SCH (10:53)
[2021-10-17] MEDS: Midodrine HCl 5 MG TAB PO SCH ×3 (10:54→22:14)
[2021-10-17] MEDS: Aspirin 81 mg Enteric Coated Tablet PO SCH (10:54)
[2021-10-17] MEDS: Rosuvastatin 20 MG TAB PO SCH (10:55)
[2021-10-17] MEDS: Acetaminophen 325 MG TAB PO PRN ×2 (15:29→23:33)
[2021-10-17 15:30] LABS: ANA Symphony (Qualitative) Negative (Negative); ANA Symphony (Quantitative) 0.5 Ratio (< 0.7 Negative)
[2021-10-17 15:50] LABS: Potassium 3.7 mmol/L (3.5-5.1)
[2021-10-17 16:29] LABS: EliA Vaculitis New Method **** NEW METHOD ****; Mitochondrial Ab 3.2 U/mL (<4 Negative)
[2021-10-17] MEDS: Zolpidem Tartrate 5 MG TAB PO SCH (22:13)
[2021-10-18 04:51] LABS: #Eosinphils 0.1 thou/uL (0.0-0.7); #Lymphocytes 0.9 thou/uL (1.20-3.40); #Monocytes 0.5 thou/uL (0.11-0.59); #Neutrophils 2.4 thou/uL (1.40-6.50); %Basophils 0.3 % (0.0-1.0); %Eosinophils 3.1 % (0.0-10.0); %Lymphocytes 23.3 % (21.0-51.0); %Monocytes 12.4 % (0.0-10.0); %Neutrophils 60.9 % (42.0-75.0); Hemoglobin 10.8 g/dL (12.0-16.0); Mean Corpuscular HGB CONC 31.5 g/dL (32.0-36.0); Mean Corpuscular Hemoglobin 29.4 pg (27.0-31.0); Mean Corpuscular Volume 93.2 fL (78.0-98.0); Mean Platelet Volume 9.3 fL (7.4-10.4); Platelet Count 127 thou/uL (130-400); RBC Distribution Width 15.3 % (11.5-14.5); Red Blood Cell (RBC) Count 3.66 mill/uL (4.20-5.40); White Blood Cell (WBC) Count 3.9 thou/uL (4.8-10.8)
[2021-10-18 05:16] LABS: ALT (SGPT) 15 U/L (8-55); AST (SGOT) 29 U/L (5-34); Albumin 2.6 g/dL (3.5-5.0); Alkaline Phosphatase 152 U/L (40-110); Anion Gap 10 mmol/L (10-20); BUN (Urea Nitrogen) 16 mg/dL (9.8-20.1); Bilirubin, Total 0.9 mg/dL (0.2-1.2); Calc. Creatinine Clearance 98 mL/min (70-130); Calcium 8.6 mg/dL (7.8-10.44); Carbon Dioxide 26 mmol/L (22-29); Chloride 103 mmol/L (98-107); Estimated GFR 89; Globulin 3.8 g/dL (2.4-3.5); Glucose 148 mg/dL (70-105); Protein, Total 6.4 g/dL (6.0-8.3); Sodium 135 mmol/L (136-145)
[2021-10-18] MEDS ORDERED: Sodium Bicarbonate 2.5 MEQ/5 ML VIAL ONE (08:39)
[2021-10-18] MEDS ORDERED: Lidocaine 1% PF 5 ML VIAL ONE (08:39)
[2021-10-18] MEDS: DULoxetine 60 MG CAP PO SCH (08:41)
[2021-10-18] MEDS: Digoxin 0.125 MG TAB PO SCH (08:41)
[2021-10-18] MEDS: Carvedilol 3.125 MG TAB PO SCH ×2 (08:41→17:02)
[2021-10-18] MEDS: Aspirin 81 mg Enteric Coated Tablet PO SCH (08:42)
[2021-10-18] MEDS: Rosuvastatin 20 MG TAB PO SCH (08:42)
[2021-10-18] MEDS: Folic Acid 1 MG TAB PO SCH (08:42)
[2021-10-18] MEDS: Midodrine HCl 5 MG TAB PO SCH ×3 (08:42→21:14)
[2021-10-18] MEDS: Spironolactone 100 MG TAB PO SCH (13:17)
[2021-10-18] MEDS: Furosemide 40 MG TAB PO SCH (13:18)
[2021-10-18 14:38] LABS: A/G Ratio 0.7 (0.7-1.7); Albumin 2.5 g/dL (2.9-4.4); Alpha 1 0.3 g/dL (0.0-0.4); Alpha 2 0.7 g/dL (0.4-1.0); Beta 1.1 g/dL (0.7-1.3); Gamma 1.6 g/dL (0.4-1.8); Globulin, Total 3.8 g/dL (2.2-3.9); M-Spike Not Observed g/dL (Not Observed); Protein Electrophoresis Intrp Note: (.)
[2021-10-18 15:38] LABS: IgG Subclass 1 1148 mg/dL (248-810); IgG Subclass 2 204 mg/dL (130-555); IgG Subclass 3 46 mg/dL (15-102); Immunoglobulin - G (Sendout) 1455 mg/dL (586-1602)
[2021-10-18] MEDS: Zolpidem Tartrate 5 MG TAB PO SCH (21:13)
[2021-10-19 04:27] LABS: #Eosinphils 0.1 thou/uL (0.0-0.7); #Lymphocytes 1.1 thou/uL (1.20-3.40); #Monocytes 0.5 thou/uL (0.11-0.59); #Neutrophils 2.8 thou/uL (1.40-6.50); %Basophils 0.3 % (0.0-1.0); %Eosinophils 2.3 % (0.0-10.0); %Lymphocytes 24.6 % (21.0-51.0); %Monocytes 10.9 % (0.0-10.0); Hemoglobin 10.7 g/dL (12.0-16.0); Mean Corpuscular HGB CONC 32.3 g/dL (32.0-36.0); Mean Corpuscular Hemoglobin 29.5 pg (27.0-31.0); Mean Corpuscular Volume 91.5 fL (78.0-98.0); Mean Platelet Volume 9.3 fL (7.4-10.4); Platelet Count 132 thou/uL (130-400); RBC Distribution Width 15.2 % (11.5-14.5); Red Blood Cell (RBC) Count 3.64 mill/uL (4.20-5.40); White Blood Cell (WBC) Count 4.5 thou/uL (4.8-10.8)
[2021-10-19 04:49] LABS: ALT (SGPT) 16 U/L (8-55); AST (SGOT) 32 U/L (5-34); Albumin 2.6 g/dL (3.5-5.0); Alkaline Phosphatase 147 U/L (40-110); Anion Gap 10 mmol/L (10-20); BUN (Urea Nitrogen) 15 mg/dL (9.8-20.1); Bilirubin, Total 0.9 mg/dL (0.2-1.2); Calc. Creatinine Clearance 95 mL/min (70-130); Calcium 8.5 mg/dL (7.8-10.44); Carbon Dioxide 26 mmol/L (22-29); Chloride 103 mmol/L (98-107); Estimated GFR 84; Globulin 3.8 g/dL (2.4-3.5); Glucose 201 mg/dL (70-105); Potassium 3.8 mmol/L (3.5-5.1); Protein, Total 6.4 g/dL (6.0-8.3); Sodium 135 mmol/L (136-145)
[2021-10-19] MEDS: Insulin Regular 300 UNITS/3 ML VIAL SC PRN ×2 (06:31→12:10)
[2021-10-19] MEDS: Carvedilol 3.125 MG TAB PO SCH ×2 (08:57→17:31)
[2021-10-19] MEDS: Midodrine HCl 5 MG TAB PO SCH ×3 (08:57→21:06)
[2021-10-19] MEDS: Rosuvastatin 20 MG TAB PO SCH (08:57)
[2021-10-19] MEDS: Furosemide 40 MG TAB PO SCH (08:57)
[2021-10-19] MEDS: DULoxetine 60 MG CAP PO SCH (08:57)
[2021-10-19] MEDS: Digoxin 0.125 MG TAB PO SCH (08:57)
[2021-10-19] MEDS: Spironolactone 100 MG TAB PO SCH (08:57)
[2021-10-19] MEDS: Aspirin 81 mg Enteric Coated Tablet PO SCH (08:57)
[2021-10-19] MEDS: Empagliflozin 10 MG TAB PO SCH (08:57)
[2021-10-19] MEDS: Folic Acid 1 MG TAB PO SCH (08:57)
[2021-10-19] MEDS: Acetaminophen 325 MG TAB PO PRN (12:10)
[2021-10-19 15:13] LABS: Smooth Muscle Total ABS 8 Units (0-19)
[2021-10-19] MEDS ORDERED: DOPamine 400 MG/D5W 250 ML 250 ML IVPB SCH (16:15)
[2021-10-19] MEDS ORDERED: Albuterol Sulfate 2.5 mg/3 ml Neb ONE (18:05)
[2021-10-19] MEDS ORDERED: Cosyntropin 250 MCG VIAL SLOW IVP SCH (19:00)
[2021-10-19] MEDS: Zolpidem Tartrate 5 MG TAB PO SCH (21:06)
[2021-10-20] MEDS: Insulin Regular 300 UNITS/3 ML VIAL SC PRN ×2 (06:35→18:13)
[2021-10-20] MEDS: Digoxin 0.125 MG TAB PO SCH (09:26)
[2021-10-20] MEDS: Rosuvastatin 20 MG TAB PO SCH (09:26)
[2021-10-20] MEDS: Folic Acid 1 MG TAB PO SCH (09:26)
[2021-10-20] MEDS: Spironolactone 25 MG TAB PO SCH (09:26)
[2021-10-20] MEDS: Furosemide 40 MG TAB PO SCH (09:27)
[2021-10-20] MEDS: DULoxetine 60 MG CAP PO SCH (09:27)
[2021-10-20] MEDS: Empagliflozin 10 MG TAB PO SCH (09:27)
[2021-10-20] MEDS: Aspirin 81 mg Enteric Coated Tablet PO SCH (09:27)
[2021-10-20 09:46] LABS: #Lymphocytes 1.1 thou/uL (1.20-3.40); #Monocytes 0.5 thou/uL (0.11-0.59); #Neutrophils 5.5 thou/uL (1.40-6.50); %Basophils 0.3 % (0.0-1.0); %Eosinophils 0.1 % (0.0-10.0); %Lymphocytes 14.8 % (21.0-51.0); %Monocytes 7.5 % (0.0-10.0); %Neutrophils 77.4 % (42.0-75.0); Hemoglobin 11.5 g/dL (12.0-16.0); Mean Corpuscular HGB CONC 30.9 g/dL (32.0-36.0); Mean Corpuscular Hemoglobin 28.1 pg (27.0-31.0); Mean Platelet Volume 8.9 fL (7.4-10.4); Platelet Count 193 thou/uL (130-400); White Blood Cell (WBC) Count 7.2 thou/uL (4.8-10.8)
[2021-10-20 09:51] LABS: Albumin 2.8 g/dL (3.5-5.0)
[2021-10-20 09:52] LABS: Chloride 101 mmol/L (98-107); Potassium 3.8 mmol/L (3.5-5.1); Sodium 136 mmol/L (136-145)
[2021-10-20 09:53] LABS: Calcium 9.1 mg/dL (7.8-10.44)
[2021-10-20 09:54] LABS: Globulin 4.4 g/dL (2.4-3.5); Glucose 212 mg/dL (70-105); Protein, Total 7.2 g/dL (6.0-8.3)
[2021-10-20 09:55] LABS: Anion Gap 14 mmol/L (10-20); Bilirubin, Total 0.9 mg/dL (0.2-1.2); Carbon Dioxide 25 mmol/L (22-29)
[2021-10-20 09:56] LABS: Alkaline Phosphatase 143 U/L (40-110)
[2021-10-20 09:57] LABS: Calc. Creatinine Clearance 80 mL/min (70-130); Estimated GFR 68
[2021-10-20 09:58] LABS: BUN (Urea Nitrogen) 20 mg/dL (9.8-20.1)
[2021-10-20 09:59] LABS: AST (SGOT) 37 U/L (5-34); Magnesium 2.1 mg/dL (1.6-2.6)
[2021-10-20 10:00] LABS: ALT (SGPT) 20 U/L (8-55)
[2021-10-20] MEDS ORDERED: WATER IVPB SCH (14:45)
[2021-10-20] MEDS ORDERED: DEXTROSE 5% IVPB SCH (14:45)
[2021-10-20] MEDS ORDERED: DOPAMINE IVPB SCH (14:45)
[2021-10-20] MEDS: Zolpidem Tartrate 5 MG TAB PO SCH (21:01)
[2021-10-21] MEDS ORDERED: predniSONE 5 MG TAB PO SCH (08:00)
[2021-10-21] MEDS: Rosuvastatin 20 MG TAB PO SCH (09:44)
[2021-10-21] MEDS: Folic Acid 1 MG TAB PO SCH (09:44)
[2021-10-21] MEDS: Aspirin 81 mg Enteric Coated Tablet PO SCH (09:44)
[2021-10-21] MEDS: Empagliflozin 10 MG TAB PO SCH (09:45)
[2021-10-21] MEDS: Spironolactone 25 MG TAB PO SCH (09:45)
[2021-10-21] MEDS: Furosemide 40 MG TAB PO SCH (09:45)
[2021-10-21] MEDS: Digoxin 0.125 MG TAB PO SCH (09:45)
[2021-10-21] MEDS: DULoxetine 60 MG CAP PO SCH (09:45)
[2021-10-21 11:15] LABS: #Eosinphils 0.1 thou/uL (0.0-0.7); #Lymphocytes 1.2 thou/uL (1.20-3.40); #Monocytes 0.5 thou/uL (0.11-0.59); #Neutrophils 4.2 thou/uL (1.40-6.50); %Basophils 0.5 % (0.0-1.0); %Eosinophils 1.7 % (0.0-10.0); %Monocytes 8.2 % (0.0-10.0); %Neutrophils 69.6 % (42.0-75.0); Hemoglobin 11.4 g/dL (12.0-16.0); Mean Corpuscular HGB CONC 31.2 g/dL (32.0-36.0); Mean Corpuscular Hemoglobin 28.1 pg (27.0-31.0); Mean Corpuscular Volume 90.3 fL (78.0-98.0); Platelet Count 166 thou/uL (130-400); RBC Distribution Width 15.1 % (11.5-14.5); Red Blood Cell (RBC) Count 4.06 mill/uL (4.20-5.40)
[2021-10-21 11:20] LABS: AST (SGOT) 43 U/L (5-34); Albumin 2.4 g/dL (3.5-5.0); Anion Gap 15 mmol/L (10-20); BUN (Urea Nitrogen) 21 mg/dL (9.8-20.1); Bilirubin, Total 0.8 mg/dL (0.2-1.2); Calc. Creatinine Clearance 85 mL/min (70-130); Calcium 8.6 mg/dL (7.8-10.44); Carbon Dioxide 20 mmol/L (22-29); Chloride 102 mmol/L (98-107); Estimated GFR 74; Globulin 4.2 g/dL (2.4-3.5); Glucose 214 mg/dL (70-105); Protein, Total 6.6 g/dL (6.0-8.3); Sodium 133 mmol/L (136-145)
[2021-10-21 11:24] LABS: ALT (SGPT) 20 U/L (8-55); Alkaline Phosphatase 123 U/L (40-110)
[2021-10-21] MEDS ORDERED: Carvedilol 6.25 MG TAB PO SCH (12:15)
[2021-10-21] MEDS: Insulin Regular 300 UNITS/3 ML VIAL SC PRN (13:31)
[2021-10-21] MEDS ORDERED: Magnesium 2 GM/50 ML(in water) 2 GM in Premix Bag 1 BAG IVPB SCH (14:00)
[2021-10-21] MEDS: Carvedilol 6.25 MG TAB PO SCH (21:07)
[2021-10-21] MEDS: Zolpidem Tartrate 5 MG TAB PO SCH (21:08)
[2021-10-22 04:35] LABS: Anion Gap 14 mmol/L (10-20); BUN (Urea Nitrogen) 21 mg/dL (9.8-20.1); Calc. Creatinine Clearance 81 mL/min (70-130); Calcium 9.4 mg/dL (7.8-10.44); Carbon Dioxide 24 mmol/L (22-29); Chloride 100 mmol/L (98-107); Estimated GFR 69; Glucose 185 mg/dL (70-105); Magnesium 2.2 mg/dL (1.6-2.6); Potassium 3.8 mmol/L (3.5-5.1); Sodium 134 mmol/L (136-145)
[2021-10-22 05:02] LABS: Band 4 % (5-11); Eosinophils 5 % (0-10); Hemoglobin 12.9 g/dL (12.0-16.0); Lymphocytes 31 % (21-51); MDiff Complete? YES; Mean Corpuscular HGB CONC 31.4 g/dL (32.0-36.0); Mean Corpuscular Hemoglobin 28.7 pg (27.0-31.0); Mean Corpuscular Volume 91.5 fL (78.0-98.0); Mean Platelet Volume 9.9 fL (7.4-10.4); Monocytes 5 % (0-10); Neutrophil 55 % (42-75); Platelet Count 102 thou/uL (130-400); Platelet Morphology Comment Appears Decreased; RBC Distribution Width 15.4 % (11.5-14.5); Red Blood Cell (RBC) Count 4.49 mill/uL (4.20-5.40); White Blood Cell (WBC) Count 4.3 thou/uL (4.8-10.8)
[2021-10-22] MEDS: Digoxin 0.125 MG TAB PO SCH (09:19)
[2021-10-22] MEDS: Aspirin 81 mg Enteric Coated Tablet PO SCH (09:19)
[2021-10-22] MEDS: Empagliflozin 10 MG TAB PO SCH (09:19)
[2021-10-22] MEDS: DULoxetine 60 MG CAP PO SCH (09:19)
[2021-10-22] MEDS: Rosuvastatin 20 MG TAB PO SCH (09:19)
[2021-10-22] MEDS: Folic Acid 1 MG TAB PO SCH (09:20)
[2021-10-22] MEDS: Carvedilol 6.25 MG TAB PO SCH ×2 (09:20→20:40)
[2021-10-22] MEDS: Furosemide 40 MG TAB PO SCH (09:21)
[2021-10-22] MEDS: Spironolactone 25 MG TAB PO SCH (09:26)
[2021-10-22] MEDS: Insulin Regular 300 UNITS/3 ML VIAL SC PRN (17:55)
[2021-10-22] MEDS: Zolpidem Tartrate 5 MG TAB PO SCH (20:39)
[2021-10-22] MEDS: DOPamine 400 MG/D5W 250 ML 250 ML IVPB SCH (20:39)
[2021-10-23 04:13] LABS: #Basophils 0.1 thou/uL (0.0-0.2); #Eosinphils 0.1 thou/uL (0.0-0.7); #Monocytes 0.5 thou/uL (0.11-0.59); %Basophils 1.5 % (0.0-1.0); %Eosinophils 3.2 % (0.0-10.0); %Lymphocytes 28.6 % (21.0-51.0); %Neutrophils 53.8 % (42.0-75.0); Hemoglobin 11.4 g/dL (12.0-16.0); Mean Corpuscular HGB CONC 31.7 g/dL (32.0-36.0); Mean Corpuscular Hemoglobin 28.6 pg (27.0-31.0); Mean Corpuscular Volume 90.1 fL (78.0-98.0); Mean Platelet Volume 9.7 fL (7.4-10.4); Platelet Count 125 thou/uL (130-400); RBC Distribution Width 15.2 % (11.5-14.5); White Blood Cell (WBC) Count 3.6 thou/uL (4.8-10.8)
[2021-10-23 04:33] LABS: Anion Gap 13 mmol/L (10-20); BUN (Urea Nitrogen) 20 mg/dL (9.8-20.1); Calc. Creatinine Clearance 79 mL/min (70-130); Calcium 8.8 mg/dL (7.8-10.44); Carbon Dioxide 26 mmol/L (22-29); Chloride 99 mmol/L (98-107); Estimated GFR 67; Glucose 175 mg/dL (70-105); Magnesium 2.2 mg/dL (1.6-2.6); Potassium 3.8 mmol/L (3.5-5.1); Sodium 134 mmol/L (136-145)
[2021-10-23] MEDS: Folic Acid 1 MG TAB PO SCH (08:26)
[2021-10-23] MEDS: Digoxin 0.125 MG TAB PO SCH (08:26)
[2021-10-23] MEDS: Spironolactone 25 MG TAB PO SCH (08:27)
[2021-10-23] MEDS: Rosuvastatin 20 MG TAB PO SCH (08:27)
[2021-10-23] MEDS: DULoxetine 60 MG CAP PO SCH (08:27)
[2021-10-23] MEDS: Carvedilol 6.25 MG TAB PO SCH ×2 (08:28→20:55)
[2021-10-23] MEDS: Aspirin 81 mg Enteric Coated Tablet PO SCH (08:28)
[2021-10-23] MEDS: Empagliflozin 10 MG TAB PO SCH (08:28)
[2021-10-23] MEDS: Furosemide 40 MG TAB PO SCH (08:28)
[2021-10-23] MEDS ORDERED: Potassium Chloride 10 MEQ TAB PO SCH (10:00)
[2021-10-23] MEDS ORDERED: Docusate 100 MG CAP PO PRN (10:30)
[2021-10-23] MEDS ORDERED: Polyethylene Glycol 3350 17 GM Packet PO PRN (10:30)
[2021-10-23] MEDS ORDERED: Milrinone Lactate/D5W 20 MG in Premix Bag 1 BAG IV SCH (12:45)
[2021-10-23] MEDS: Insulin Regular 300 UNITS/3 ML VIAL SC PRN (14:09)
[2021-10-23] MEDS: DOPamine 400 MG/D5W 250 ML 250 ML IVPB SCH (17:35)
[2021-10-23] MEDS: Zolpidem Tartrate 5 MG TAB PO SCH (20:55)
[2021-10-24 04:24] LABS: #Eosinphils 0.1 thou/uL (0.0-0.7); #Lymphocytes 1.2 thou/uL (1.20-3.40); #Monocytes 0.5 thou/uL (0.11-0.59); #Neutrophils 2.2 thou/uL (1.40-6.50); %Basophils 0.9 % (0.0-1.0); %Lymphocytes 29.9 % (21.0-51.0); %Monocytes 11.9 % (0.0-10.0); %Neutrophils 54.3 % (42.0-75.0); Mean Corpuscular HGB CONC 32.5 g/dL (32.0-36.0); Mean Corpuscular Hemoglobin 29.2 pg (27.0-31.0); Mean Corpuscular Volume 89.8 fL (78.0-98.0); Mean Platelet Volume 9.9 fL (7.4-10.4); Platelet Count 137 thou/uL (130-400); RBC Distribution Width 15.2 % (11.5-14.5); Red Blood Cell (RBC) Count 4.11 mill/uL (4.20-5.40)
[2021-10-24 04:30] LABS: Anion Gap 15 mmol/L (10-20); BUN (Urea Nitrogen) 19 mg/dL (9.8-20.1); Calc. Creatinine Clearance 72 mL/min (70-130); Calcium 8.8 mg/dL (7.8-10.44); Carbon Dioxide 25 mmol/L (22-29); Chloride 100 mmol/L (98-107); Estimated GFR 66; Glucose 154 mg/dL (70-105); Magnesium 2.2 mg/dL (1.6-2.6); Potassium 3.7 mmol/L (3.5-5.1); Sodium 136 mmol/L (136-145)
[2021-10-24] MEDS: Digoxin 0.125 MG TAB PO SCH (08:47)
[2021-10-24] MEDS: Spironolactone 25 MG TAB PO SCH (08:48)
[2021-10-24] MEDS: Folic Acid 1 MG TAB PO SCH (08:48)
[2021-10-24] MEDS: DULoxetine 60 MG CAP PO SCH (08:49)
[2021-10-24] MEDS: Carvedilol 6.25 MG TAB PO SCH ×2 (08:49→22:11)
[2021-10-24] MEDS: Rosuvastatin 20 MG TAB PO SCH (08:50)
[2021-10-24] MEDS: Furosemide 40 MG TAB PO SCH (08:50)
[2021-10-24] MEDS: Aspirin 81 mg Enteric Coated Tablet PO SCH (08:53)
[2021-10-24] MEDS: Empagliflozin 10 MG TAB PO SCH (08:54)
[2021-10-24] MEDS ORDERED: Potassium Chloride 10 MEQ TAB PO SCH (09:00)
[2021-10-24] MEDS: Milrinone Lactate/D5W 20 MG in Premix Bag 1 BAG IV SCH ×2 (10:34→17:52)
[2021-10-24] MEDS: DOPamine 400 MG/D5W 250 ML 250 ML IVPB SCH ×2 (10:37→12:51)
[2021-10-24] MEDS: Insulin Regular 300 UNITS/3 ML VIAL SC PRN (17:53)
[2021-10-24] MEDS: Potassium Chloride 10 MEQ TAB PO SCH (22:11)
[2021-10-24] MEDS: Zolpidem Tartrate 5 MG TAB PO SCH (22:12)
[2021-10-25 05:28] LABS: #Eosinphils 0.1 thou/uL (0.0-0.7); #Lymphocytes 1.3 thou/uL (1.20-3.40); #Monocytes 0.6 thou/uL (0.11-0.59); #Neutrophils 2.9 thou/uL (1.40-6.50); %Basophils 0.5 % (0.0-1.0); %Eosinophils 2.8 % (0.0-10.0); %Lymphocytes 25.8 % (21.0-51.0); %Monocytes 11.9 % (0.0-10.0); %Neutrophils 58.9 % (42.0-75.0); Hemoglobin 10.8 g/dL (12.0-16.0); Mean Corpuscular HGB CONC 32.3 g/dL (32.0-36.0); Mean Corpuscular Hemoglobin 28.4 pg (27.0-31.0); Mean Corpuscular Volume 87.9 fL (78.0-98.0); Mean Platelet Volume 9.8 fL (7.4-10.4); Platelet Count 140 thou/uL (130-400); RBC Distribution Width 15.3 % (11.5-14.5); Red Blood Cell (RBC) Count 3.81 mill/uL (4.20-5.40); White Blood Cell (WBC) Count 4.9 thou/uL (4.8-10.8)
[2021-10-25 05:48] LABS: Anion Gap 12 mmol/L (10-20); BUN (Urea Nitrogen) 21 mg/dL (9.8-20.1); Carbon Dioxide 25 mmol/L (22-29); Chloride 99 mmol/L (98-107); Potassium 3.6 mmol/L (3.5-5.1); Sodium 132 mmol/L (136-145)
[2021-10-25 05:49] LABS: Calc. Creatinine Clearance 62 mL/min (70-130); Calcium 8.8 mg/dL (7.8-10.44); Estimated GFR 55; Glucose 164 mg/dL (70-105); Magnesium 2.1 mg/dL (1.6-2.6)
[2021-10-25] MEDS: Albumin 25% 25 GM/100 ML BOT IVPB SCH ×3 (05:58→20:43)
[2021-10-25] MEDS ORDERED: Sodium Bicarbonate 2.5 MEQ/5 ML VIAL ONE (07:26)
[2021-10-25] MEDS ORDERED: Lidocaine 1% PF 5 ML VIAL ONE (07:26)
[2021-10-25] MEDS: Aspirin 81 mg Enteric Coated Tablet PO SCH (09:31)
[2021-10-25] MEDS: Spironolactone 25 MG TAB PO SCH (09:31)
[2021-10-25] MEDS: Folic Acid 1 MG TAB PO SCH (09:31)
[2021-10-25] MEDS: DULoxetine 60 MG CAP PO SCH (09:31)
[2021-10-25] MEDS: Potassium Chloride 10 MEQ TAB PO SCH ×2 (09:31→20:43)
[2021-10-25] MEDS: Rosuvastatin 20 MG TAB PO SCH (09:32)
[2021-10-25] MEDS: Furosemide 40 MG TAB PO SCH (09:32)
[2021-10-25] MEDS: Carvedilol 6.25 MG TAB PO SCH ×2 (09:32→20:43)
[2021-10-25] MEDS: Digoxin 0.125 MG TAB PO SCH (09:32)
[2021-10-25] MEDS: Empagliflozin 10 MG TAB PO SCH (09:33)
[2021-10-25] MEDS: Milrinone Lactate/D5W 20 MG in Premix Bag 1 BAG IV SCH ×2 (10:10→18:32)
[2021-10-25] MEDS ORDERED: Magnesium 2 GM/50 ML(in water) 2 GM in Premix Bag 1 BAG IVPB SCH (14:30)
[2021-10-25] MEDS: Acetaminophen 325 MG TAB PO PRN (17:39)
[2021-10-25] MEDS: Insulin Regular 300 UNITS/3 ML VIAL SC PRN (17:42)
[2021-10-25] MEDS: Zolpidem Tartrate 5 MG TAB PO SCH (20:43)
[2021-10-25] MEDS ORDERED: Carvedilol 6.25 MG TAB PO SCH (23:00)
[2021-10-26] MEDS: Milrinone Lactate/D5W 20 MG in Premix Bag 1 BAG IV SCH ×2 (00:16→13:09)
[2021-10-26 04:51] LABS: Anion Gap 13 mmol/L (10-20); BUN (Urea Nitrogen) 19 mg/dL (9.8-20.1); Calc. Creatinine Clearance 60 mL/min (70-130); Calcium 9.5 mg/dL (7.8-10.44); Carbon Dioxide 27 mmol/L (22-29); Chloride 101 mmol/L (98-107); Estimated GFR 52; Glucose 152 mg/dL (70-105); Magnesium 2.6 mg/dL (1.6-2.6); Potassium 3.8 mmol/L (3.5-5.1); Sodium 137 mmol/L (136-145)
[2021-10-26 05:13] LABS: #Eosinphils 0.1 thou/uL (0.0-0.7); #Monocytes 0.5 thou/uL (0.11-0.59); #Neutrophils 2.4 thou/uL (1.40-6.50); %Basophils 0.5 % (0.0-1.0); %Eosinophils 2.1 % (0.0-10.0); %Lymphocytes 25.2 % (21.0-51.0); %Monocytes 12.9 % (0.0-10.0); %Neutrophils 59.3 % (42.0-75.0); Hemoglobin 10.2 g/dL (12.0-16.0); Mean Corpuscular HGB CONC 33.2 g/dL (32.0-36.0); Mean Corpuscular Hemoglobin 29.1 pg (27.0-31.0); Mean Corpuscular Volume 87.7 fL (78.0-98.0); Mean Platelet Volume 9.9 fL (7.4-10.4); Platelet Count 106 thou/uL (130-400); Platelet Morphology Comment Appears Decreased; RBC Distribution Width 15.2 % (11.5-14.5); White Blood Cell (WBC) Count 4.1 thou/uL (4.8-10.8)
[2021-10-26] MEDS: Spironolactone 25 MG TAB PO SCH (08:40)
[2021-10-26] MEDS: Digoxin 0.125 MG TAB PO SCH (08:41)
[2021-10-26] MEDS: Rosuvastatin 20 MG TAB PO SCH (08:41)
[2021-10-26] MEDS: Folic Acid 1 MG TAB PO SCH (08:41)
[2021-10-26] MEDS: Carvedilol 6.25 MG TAB PO SCH ×2 (08:41→16:02)
[2021-10-26] MEDS: Potassium Chloride 10 MEQ TAB PO SCH ×2 (08:42→20:45)
[2021-10-26] MEDS: Empagliflozin 10 MG TAB PO SCH (08:42)
[2021-10-26] MEDS: Aspirin 81 mg Enteric Coated Tablet PO SCH (08:42)
[2021-10-26] MEDS: Furosemide 40 MG TAB PO SCH (08:42)
[2021-10-26] MEDS: DULoxetine 60 MG CAP PO SCH (08:42)
[2021-10-26] MEDS: Acetaminophen 325 MG TAB PO PRN (08:47)
[2021-10-26] MEDS: Zolpidem Tartrate 5 MG TAB PO SCH (20:45)
[2021-10-26] MEDS: Insulin Regular 300 UNITS/3 ML VIAL SC PRN (20:46)
[2021-10-27 07:11] LABS: Anion Gap 12 mmol/L (10-20); BUN (Urea Nitrogen) 13 mg/dL (9.8-20.1); Calc. Creatinine Clearance 58 mL/min (70-130); Calcium 9.2 mg/dL (7.8-10.44); Carbon Dioxide 23 mmol/L (22-29); Chloride 105 mmol/L (98-107); Estimated GFR 54; Glucose 126 mg/dL (70-105); Magnesium 2.3 mg/dL (1.6-2.6); Potassium 3.3 mmol/L (3.5-5.1); Sodium 137 mmol/L (136-145)
[2021-10-27 07:19] LABS: #Eosinphils 0.1 thou/uL (0.0-0.7); #Lymphocytes 1.2 thou/uL (1.20-3.40); #Monocytes 0.6 thou/uL (0.11-0.59); #Neutrophils 2.7 thou/uL (1.40-6.50); %Basophils 0.3 % (0.0-1.0); %Eosinophils 2.3 % (0.0-10.0); %Lymphocytes 25.1 % (21.0-51.0); %Monocytes 12.9 % (0.0-10.0); %Neutrophils 59.5 % (42.0-75.0); Hemoglobin 10.9 g/dL (12.0-16.0); Mean Corpuscular Volume 87.5 fL (78.0-98.0); Platelet Count 117 thou/uL (130-400); RBC Distribution Width 15.2 % (11.5-14.5); Red Blood Cell (RBC) Count 3.91 mill/uL (4.20-5.40); White Blood Cell (WBC) Count 4.6 thou/uL (4.8-10.8)
[2021-10-27] MEDS: Carvedilol 6.25 MG TAB PO SCH ×2 (08:12→16:35)
[2021-10-27] MEDS: Spironolactone 25 MG TAB PO SCH (08:12)
[2021-10-27] MEDS: Furosemide 40 MG TAB PO SCH (08:12)
[2021-10-27] MEDS: Rosuvastatin 20 MG TAB PO SCH (08:12)
[2021-10-27] MEDS: DULoxetine 60 MG CAP PO SCH (08:12)
[2021-10-27] MEDS: Digoxin 0.125 MG TAB PO SCH (08:12)
[2021-10-27] MEDS: Aspirin 81 mg Enteric Coated Tablet PO SCH (08:13)
[2021-10-27] MEDS: Potassium Chloride 10 MEQ TAB PO SCH ×2 (08:13→20:48)
[2021-10-27] MEDS: Folic Acid 1 MG TAB PO SCH (08:13)
[2021-10-27] MEDS: Empagliflozin 10 MG TAB PO SCH (08:19)
[2021-10-27] MEDS: Milrinone Lactate/D5W 20 MG in Premix Bag 1 BAG IV SCH (12:52)
[2021-10-27] MEDS: Potassium Chloride 20 MEQ in Premix Bag 1 BAG IVPB SCH ×2 (12:52→15:07)
[2021-10-27] MEDS: Zolpidem Tartrate 5 MG TAB PO SCH (20:48)
[2021-10-27] MEDS: Insulin Regular 300 UNITS/3 ML VIAL SC PRN (20:49)
[2021-10-28] MEDS: Milrinone Lactate/D5W 20 MG in Premix Bag 1 BAG IV SCH ×3 (03:31→22:57)
[2021-10-28 04:58] LABS: Anion Gap 13 mmol/L (10-20); BUN (Urea Nitrogen) 14 mg/dL (9.8-20.1); Calc. Creatinine Clearance 51 mL/min (70-130); Calcium 9.3 mg/dL (7.8-10.44); Carbon Dioxide 25 mmol/L (22-29); Chloride 102 mmol/L (98-107); Estimated GFR 51; Glucose 135 mg/dL (70-105); Potassium 3.7 mmol/L (3.5-5.1); Sodium 136 mmol/L (136-145)
[2021-10-28 05:43] LABS: Band 10 % (5-11); Eosinophils 2 % (0-10); Lymphocytes 24 % (21-51); MDiff Complete? YES; Mean Corpuscular HGB CONC 31.5 g/dL (32.0-36.0); Mean Corpuscular Hemoglobin 27.8 pg (27.0-31.0); Mean Corpuscular Volume 88.2 fL (78.0-98.0); Monocytes 12 % (0-10); Neutrophil 52 % (42-75); Platelet Count 121 thou/uL (130-400); RBC Distribution Width 15.4 % (11.5-14.5); Red Blood Cell (RBC) Count 3.97 mill/uL (4.20-5.40); White Blood Cell (WBC) Count 4.8 thou/uL (4.8-10.8)
[2021-10-28 09:24] VITALS: BMI 28.8
[2021-10-28] MEDS: Carvedilol 6.25 MG TAB PO SCH ×2 (10:16→17:35)
[2021-10-28] MEDS: DULoxetine 60 MG CAP PO SCH (10:17)
[2021-10-28] MEDS: Digoxin 0.125 MG TAB PO SCH (10:17)
[2021-10-28] MEDS: Aspirin 81 mg Enteric Coated Tablet PO SCH (10:17)
[2021-10-28] MEDS: Rosuvastatin 20 MG TAB PO SCH (10:18)
[2021-10-28] MEDS: Potassium Chloride 10 MEQ TAB PO SCH ×2 (10:18→21:59)
[2021-10-28] MEDS: Folic Acid 1 MG TAB PO SCH (10:18)
[2021-10-28] MEDS: Furosemide 40 MG TAB PO SCH (10:22)
[2021-10-28] MEDS: Spironolactone 25 MG TAB PO SCH (10:23)
[2021-10-28] MEDS: Insulin Regular 300 UNITS/3 ML VIAL SC PRN ×3 (11:35→22:00)
[2021-10-28] MEDS: Empagliflozin 10 MG TAB PO SCH (11:35)
[2021-10-28] MEDS: Zolpidem Tartrate 5 MG TAB PO SCH (22:00)
[2021-10-29 04:53] LABS: #Eosinphils 0.2 thou/uL (0.0-0.7); #Lymphocytes 1.2 thou/uL (1.20-3.40); #Monocytes 0.6 thou/uL (0.11-0.59); #Neutrophils 2.5 thou/uL (1.40-6.50); %Basophils 0.3 % (0.0-1.0); %Eosinophils 4.4 % (0.0-10.0); %Lymphocytes 25.7 % (21.0-51.0); %Monocytes 13.9 % (0.0-10.0); %Neutrophils 55.7 % (42.0-75.0); Hemoglobin 10.6 g/dL (12.0-16.0); Mean Corpuscular HGB CONC 31.8 g/dL (32.0-36.0); Mean Corpuscular Hemoglobin 27.9 pg (27.0-31.0); Mean Corpuscular Volume 87.9 fL (78.0-98.0); Mean Platelet Volume 9.9 fL (7.4-10.4); Platelet Count 123 thou/uL (130-400); RBC Distribution Width 15.3 % (11.5-14.5); Red Blood Cell (RBC) Count 3.79 mill/uL (4.20-5.40); White Blood Cell (WBC) Count 4.6 thou/uL (4.8-10.8)
[2021-10-29 05:09] LABS: Anion Gap 13 mmol/L (10-20); BUN (Urea Nitrogen) 14 mg/dL (9.8-20.1); Calc. Creatinine Clearance 70 mL/min (70-130); Carbon Dioxide 21 mmol/L (22-29); Chloride 103 mmol/L (98-107); Estimated GFR 67; Glucose 150 mg/dL (70-105); Potassium 3.1 mmol/L (3.5-5.1); Sodium 134 mmol/L (136-145)
[2021-10-29] MEDS: Carvedilol 6.25 MG TAB PO SCH ×2 (09:25→18:30)
[2021-10-29] MEDS: Potassium Chloride 20 MEQ TAB PO SCH ×2 (09:26→14:47)
[2021-10-29] MEDS: Spironolactone 100 MG TAB PO SCH (09:26)
[2021-10-29] MEDS: Aspirin 81 mg Enteric Coated Tablet PO SCH (09:27)
[2021-10-29] MEDS: Folic Acid 1 MG TAB PO SCH (09:27)
[2021-10-29] MEDS: DULoxetine 60 MG CAP PO SCH (09:27)
[2021-10-29] MEDS: Empagliflozin 10 MG TAB PO SCH (09:27)
[2021-10-29] MEDS: Rosuvastatin 20 MG TAB PO SCH (09:27)
[2021-10-29] MEDS: Digoxin 0.125 MG TAB PO SCH (09:27)
[2021-10-29] MEDS: Milrinone Lactate/D5W 20 MG in Premix Bag 1 BAG IV SCH ×2 (11:28→22:32)
[2021-10-29] MEDS: Insulin Regular 300 UNITS/3 ML VIAL SC PRN ×3 (12:49→20:38)
[2021-10-29] MEDS ORDERED: Furosemide 40 MG/4 ML VIAL SLOW IVP SCH (14:00)
[2021-10-29] MEDS: Zolpidem Tartrate 5 MG TAB PO SCH (20:27)
[2021-10-30] MEDS: Milrinone Lactate/D5W 20 MG in Premix Bag 1 BAG IV SCH ×3 (02:02→23:11)
[2021-10-30 03:56] LABS: #Eosinphils 0.1 thou/uL (0.0-0.7); #Monocytes 0.7 thou/uL (0.11-0.59); #Neutrophils 2.7 thou/uL (1.40-6.50); %Basophils 0.8 % (0.0-1.0); %Eosinophils 3.1 % (0.0-10.0); %Lymphocytes 22.2 % (21.0-51.0); %Monocytes 14.3 % (0.0-10.0); %Neutrophils 59.6 % (42.0-75.0); Hemoglobin 10.5 g/dL (12.0-16.0); Mean Corpuscular HGB CONC 32.3 g/dL (32.0-36.0); Mean Corpuscular Hemoglobin 28.4 pg (27.0-31.0); Mean Corpuscular Volume 87.9 fL (78.0-98.0); Mean Platelet Volume 9.2 fL (7.4-10.4); Platelet Count 124 thou/uL (130-400); RBC Distribution Width 15.3 % (11.5-14.5); White Blood Cell (WBC) Count 4.6 thou/uL (4.8-10.8)
[2021-10-30 04:15] LABS: Anion Gap 11 mmol/L (10-20); BUN (Urea Nitrogen) 15 mg/dL (9.8-20.1); Calc. Creatinine Clearance 65 mL/min (70-130); Calcium 8.9 mg/dL (7.8-10.44); Carbon Dioxide 23 mmol/L (22-29); Chloride 102 mmol/L (98-107); Estimated GFR 62; Glucose 152 mg/dL (70-105); Potassium 3.4 mmol/L (3.5-5.1); Sodium 133 mmol/L (136-145)
[2021-10-30] MEDS ORDERED: Potassium Chloride 20 MEQ TAB PO SCH (07:00)
[2021-10-30] MEDS: Digoxin 0.125 MG TAB PO SCH (08:55)
[2021-10-30] MEDS: Spironolactone 100 MG TAB PO SCH (08:55)
[2021-10-30] MEDS: Aspirin 81 mg Enteric Coated Tablet PO SCH (08:55)
[2021-10-30] MEDS: Carvedilol 6.25 MG TAB PO SCH ×2 (08:55→17:16)
[2021-10-30] MEDS: Rosuvastatin 20 MG TAB PO SCH (08:56)
[2021-10-30] MEDS: Folic Acid 1 MG TAB PO SCH (08:56)
[2021-10-30] MEDS: Empagliflozin 10 MG TAB PO SCH (08:56)
[2021-10-30] MEDS: DULoxetine 60 MG CAP PO SCH (08:57)
[2021-10-30] MEDS ORDERED: Bumetanide 1 MG TAB PO SCH (11:45)
[2021-10-30] MEDS: Potassium Chloride 20 MEQ TAB PO SCH (17:16)
[2021-10-30] MEDS: Bumetanide 1 MG TAB PO SCH (17:16)
[2021-10-30] MEDS: Insulin Regular 300 UNITS/3 ML VIAL SC PRN ×2 (17:17→21:08)
[2021-10-30] MEDS: Zolpidem Tartrate 5 MG TAB PO SCH (21:08)
[2021-10-31 04:41] LABS: #Eosinphils 0.1 thou/uL (0.0-0.7); #Lymphocytes 1.2 thou/uL (1.20-3.40); #Monocytes 0.7 thou/uL (0.11-0.59); #Neutrophils 3.4 thou/uL (1.40-6.50); %Basophils 0.8 % (0.0-1.0); %Eosinophils 2.2 % (0.0-10.0); %Lymphocytes 21.6 % (21.0-51.0); %Monocytes 12.7 % (0.0-10.0); %Neutrophils 62.8 % (42.0-75.0); Hemoglobin 10.7 g/dL (12.0-16.0); Mean Corpuscular HGB CONC 31.5 g/dL (32.0-36.0); Mean Corpuscular Hemoglobin 27.4 pg (27.0-31.0); Mean Corpuscular Volume 87.2 fL (78.0-98.0); Mean Platelet Volume 9.1 fL (7.4-10.4); Platelet Count 138 thou/uL (130-400); RBC Distribution Width 15.1 % (11.5-14.5); Red Blood Cell (RBC) Count 3.88 mill/uL (4.20-5.40); White Blood Cell (WBC) Count 5.5 thou/uL (4.8-10.8)
[2021-10-31 05:00] LABS: Anion Gap 13 mmol/L (10-20); BUN (Urea Nitrogen) 14 mg/dL (9.8-20.1); Calc. Creatinine Clearance 63 mL/min (70-130); Calcium 9.1 mg/dL (7.8-10.44); Carbon Dioxide 25 mmol/L (22-29); Chloride 99 mmol/L (98-107); Estimated GFR 61; Glucose 147 mg/dL (70-105); Potassium 3.7 mmol/L (3.5-5.1); Sodium 133 mmol/L (136-145)
[2021-10-31] MEDS: Insulin Regular 300 UNITS/3 ML VIAL SC PRN ×4 (05:46→21:09)
[2021-10-31 08:55] LABS: Magnesium 1.9 mg/dL (1.6-2.6)
[2021-10-31] MEDS: Glimepiride 4 MG TAB PO SCH (09:15)
[2021-10-31] MEDS: Spironolactone 100 MG TAB PO SCH (09:15)
[2021-10-31] MEDS: Folic Acid 1 MG TAB PO SCH (09:15)
[2021-10-31] MEDS: Digoxin 0.125 MG TAB PO SCH (09:15)
[2021-10-31] MEDS: Aspirin 81 mg Enteric Coated Tablet PO SCH (09:16)
[2021-10-31] MEDS: Bumetanide 1 MG TAB PO SCH ×2 (09:16→17:48)
[2021-10-31] MEDS: Potassium Chloride 20 MEQ TAB PO SCH ×2 (09:16→17:48)
[2021-10-31] MEDS: DULoxetine 60 MG CAP PO SCH (09:16)
[2021-10-31] MEDS: Rosuvastatin 20 MG TAB PO SCH (09:16)
[2021-10-31] MEDS: Carvedilol 6.25 MG TAB PO SCH ×2 (09:16→17:48)
[2021-10-31] MEDS: Empagliflozin 10 MG TAB PO SCH (09:17)
[2021-10-31] MEDS: Milrinone Lactate/D5W 20 MG in Premix Bag 1 BAG IV SCH (10:57)
[2021-10-31] MEDS: Zolpidem Tartrate 5 MG TAB PO SCH (21:10)
[2021-11-01] MEDS: Milrinone Lactate/D5W 20 MG in Premix Bag 1 BAG IV SCH ×2 (00:47→13:01)
[2021-11-01] MEDS: Insulin Regular 300 UNITS/3 ML VIAL SC PRN ×2 (06:15→13:11)
[2021-11-01 06:58] LABS: #Eosinphils 0.1 thou/uL (0.0-0.7); #Lymphocytes 1.1 thou/uL (1.20-3.40); #Monocytes 0.6 thou/uL (0.11-0.59); #Neutrophils 2.7 thou/uL (1.40-6.50); %Basophils 0.5 % (0.0-1.0); %Eosinophils 2.3 % (0.0-10.0); %Lymphocytes 24.4 % (21.0-51.0); %Monocytes 13.2 % (0.0-10.0); %Neutrophils 59.6 % (42.0-75.0); Hemoglobin 10.7 g/dL (12.0-16.0); Mean Corpuscular HGB CONC 32.1 g/dL (32.0-36.0); Mean Corpuscular Hemoglobin 28.1 pg (27.0-31.0); Mean Corpuscular Volume 87.4 fL (78.0-98.0); Mean Platelet Volume 9.5 fL (7.4-10.4); Platelet Count 131 thou/uL (130-400); RBC Distribution Width 15.2 % (11.5-14.5); Red Blood Cell (RBC) Count 3.81 mill/uL (4.20-5.40); White Blood Cell (WBC) Count 4.6 thou/uL (4.8-10.8)
[2021-11-01 07:12] LABS: Calcium 9.1 mg/dL (7.8-10.44); Chloride 97 mmol/L (98-107); Potassium 3.5 mmol/L (3.5-5.1); Sodium 133 mmol/L (136-145)
[2021-11-01 07:13] LABS: Glucose 178 mg/dL (70-105)
[2021-11-01 07:15] LABS: Anion Gap 14 mmol/L (10-20); Carbon Dioxide 26 mmol/L (22-29)
[2021-11-01 07:16] LABS: Calc. Creatinine Clearance 61 mL/min (70-130); Estimated GFR 60
[2021-11-01 07:17] LABS: BUN (Urea Nitrogen) 15 mg/dL (9.8-20.1)
[2021-11-01] MEDS: DULoxetine 60 MG CAP PO SCH (09:09)
[2021-11-01] MEDS: Digoxin 0.125 MG TAB PO SCH (09:09)
[2021-11-01] MEDS: Glimepiride 4 MG TAB PO SCH (09:09)
[2021-11-01] MEDS: Bumetanide 1 MG TAB PO SCH (09:09)
[2021-11-01] MEDS: Folic Acid 1 MG TAB PO SCH (09:09)
[2021-11-01] MEDS: Spironolactone 100 MG TAB PO SCH (09:09)
[2021-11-01] MEDS: Rosuvastatin 20 MG TAB PO SCH (09:10)
[2021-11-01] MEDS: Carvedilol 6.25 MG TAB PO SCH (09:10)
[2021-11-01] MEDS: Empagliflozin 10 MG TAB PO SCH (09:11)
[2021-11-01] MEDS: Potassium Chloride 20 MEQ TAB PO SCH (09:12)
[2021-11-01] MEDS: Aspirin 81 mg Enteric Coated Tablet PO SCH (09:12)
[2021-11-01 15:53] VITALS: BP 110/53; TEMP 97.7
[2021-11-01] MEDS ORDERED: Bumetanide 1 MG TAB PO SCH (16:00)
[2021-11-02] MEDS ORDERED: Bumetanide 1 MG TAB PO SCH (09:00)
== END 2021-11-01 16:40 | disposition home health service (06) | DRG 432 ==
LOC: ERS 12:03 → 2NO 15:18
PROVIDERS: ADMIT Internal Medicine; ATTEND Internal Medicine
PROC: 0W9G3ZZ Drainage of Peritoneal Cavity, Percutaneous Approach (ICD-10-PCS; 2021-10-15)
PROC: 0W9G3ZZ Drainage of Peritoneal Cavity, Percutaneous Approach (ICD-10-PCS; 2021-10-17)
PROC: 02HV33Z Insertion of Infusion Device into Superior Vena Cava, Percutaneous Approach (ICD-10-PCS; principal; 2021-10-25)
PROC: B548ZZA Ultrasonography of Superior Vena Cava, Guidance (ICD-10-PCS; 2021-10-25)
PROC: 0W9G3ZZ Drainage of Peritoneal Cavity, Percutaneous Approach (ICD-10-PCS; 2021-10-25)
PROC: 05HY33Z Insertion of Infusion Device into Upper Vein, Percutaneous Approach (ICD-10-PCS; 2021-10-30)
DX: K74.60 Unspecified cirrhosis of liver (principal); I50.43 Acute on chronic combined systolic (congestive) and diastolic (congestive) heart failure; R18.8 Other ascites; K76.6 Portal hypertension; E27.40 Unspecified adrenocortical insufficiency; I25.810 Atherosclerosis of coronary artery bypass graft(s) without angina pectoris; Z51.5 Encounter for palliative care; Z20.822 Contact with and (suspected) exposure to COVID-19; Z66 Do not resuscitate; K21.9 Gastro-esophageal reflux disease without esophagitis; F32.A Depression, unspecified; E87.6 Hypokalemia; D69.6 Thrombocytopenia, unspecified; D63.8 Anemia in other chronic diseases classified elsewhere; I25.5 Ischemic cardiomyopathy; K31.89 Other diseases of stomach and duodenum; E78.2 Mixed hyperlipidemia; I10 Essential (primary) hypertension; K76.0 Fatty (change of) liver, not elsewhere classified; E11.43 Type 2 diabetes mellitus with diabetic autonomic (poly)neuropathy; I95.1 Orthostatic hypotension; E03.9 Hypothyroidism, unspecified; K59.00 Constipation, unspecified; Z88.8 Allergy status to other drugs, medicaments and biological substances; Z79.82 Long term (current) use of aspirin; Z79.02 Long term (current) use of antithrombotics/antiplatelets; Z79.84 Long term (current) use of oral hypoglycemic drugs; Z79.899 Other long term (current) drug therapy; Z95.810 Presence of automatic (implantable) cardiac defibrillator; Z28.311 Partially vaccinated for COVID-19; Z90.49 Acquired absence of other specified parts of digestive tract; Z90.710 Acquired absence of both cervix and uterus; Z98.890 Other specified postprocedural states; Z87.891 Personal history of nicotine dependence; Z95.1 Presence of aortocoronary bypass graft; Z79.4 Long term (current) use of insulin; I25.2 Old myocardial infarction
CPT/HCPCS: 36415; 36416; 36569; 49083; 71045; 76705; 80048; 80053; 80061; 80074; 80400; 82042; 82043; 82103; 82105; 82140; 82150; 82390; 82525; 82728; 82787; 83036; 83516; 83540; 83550; 83615; 83735; 83880; 84145; 84155; 84157; 84165; 84439; 84443; 84484; 85025; 85060; 85610; 86015; 86038; 86140; 86225; 86705; 86706; 87070; 87205; 88304; 89051; 93005; 93306; 93975; 96374; 97139; C1751; J0834; J1265; J1644; J1815; J1940; J2260; J2405; J3475; J3480; J7070; P9047; U0003; U0005

== ENCOUNTER 2021-11-02 09:05 | Emergency (ER) | payer MEDICARE ==
[2021-11-02 11:04] LABS: #Eosinphils 0.1 thou/uL (0.0-0.7); #Monocytes 0.7 thou/uL (0.11-0.59); #Neutrophils 2.8 thou/uL (1.40-6.50); %Basophils 0.8 % (0.0-1.0); %Eosinophils 2.3 % (0.0-10.0); Hemoglobin 11.2 g/dL (12.0-16.0); Mean Corpuscular HGB CONC 31.8 g/dL (32.0-36.0); Mean Corpuscular Hemoglobin 27.8 pg (27.0-31.0); Mean Corpuscular Volume 87.5 fL (78.0-98.0); Mean Platelet Volume 9.7 fL (7.4-10.4); Platelet Count 129 thou/uL (130-400); RBC Distribution Width 15.4 % (11.5-14.5); Red Blood Cell (RBC) Count 4.03 mill/uL (4.20-5.40); White Blood Cell (WBC) Count 4.7 thou/uL (4.8-10.8)
[2021-11-02 11:27] LABS: ALT (SGPT) 22 U/L (8-55); AST (SGOT) 39 U/L (5-34); Albumin 3.4 g/dL (3.5-5.0); Alkaline Phosphatase 144 U/L (40-110); Anion Gap 14 mmol/L (10-20); BUN (Urea Nitrogen) 16 mg/dL (9.8-20.1); Bilirubin, Total 1.4 mg/dL (0.2-1.2); Calc. Creatinine Clearance 0 mL/min (70-130); Calcium 9.2 mg/dL (7.8-10.44); Carbon Dioxide 25 mmol/L (22-29); Chloride 98 mmol/L (98-107); Estimated GFR 53; Glucose 146 mg/dL (70-105); Lipase 48 U/L (8-78); Potassium 3.7 mmol/L (3.5-5.1); Protein, Total 7.4 g/dL (6.0-8.3); Sodium 133 mmol/L (136-145)
[2021-11-02 11:38] LABS: CKMB 2.9 ng/mL (0-6.6)
[2021-11-02] MEDS ORDERED: Heparin 1,000 UNITS/ML VIAL ONE (12:32)
== END 2021-11-02 17:38 | disposition home or self-care (01) ==
LOC: ERS 09:05
DX: Z45.2 Encounter for adjustment and management of vascular access device (principal); I11.0 Hypertensive heart disease with heart failure; E11.9 Type 2 diabetes mellitus without complications; K21.9 Gastro-esophageal reflux disease without esophagitis; Z87.891 Personal history of nicotine dependence; Z79.82 Long term (current) use of aspirin; Z79.899 Other long term (current) drug therapy
CPT/HCPCS: 36569; 71045; 80053; 82140; 82553; 83690; 83880; 84484; 85025; 93005; C1751; 36415; J1644

== ENCOUNTER 2021-11-04 12:28 | Emergency (ER) | payer MEDICARE | END 2021-11-04 13:52 | disposition home or self-care (01) | LOC: ERS 12:28 | DX: Z45.2 Encounter for adjustment and management of vascular access device (principal); I11.0 Hypertensive heart disease with heart failure; I50.9 Heart failure, unspecified; E11.9 Type 2 diabetes mellitus without complications; K21.9 Gastro-esophageal reflux disease without esophagitis; Z87.891 Personal history of nicotine dependence; Z79.899 Other long term (current) drug therapy; Z79.82 Long term (current) use of aspirin | CPT/HCPCS: 99283 ==